=== PATIENT | female | born 1950 | race Caucasian/White ===

== ENCOUNTER 2018-05-30 14:41 | Emergency (ER) | payer OTHER ==
[2018-05-30] MEDS ORDERED: NA CHLORIDE 0.9% 1,000 ML ONE (16:21)
[2018-05-30 16:45] LABS: Absolute Monocytes 0.8 K/uL (0.1-1.3); Absolute Neutrophil 7.1 K/uL (1.8-8.0); Eosinophils % 1.5 % (0-4.4); Hematocrit 39.8 % (36.0-45.0); Lymphocytes % 27.2 % (15.3-44.8); MPV 9.4 fL (7.6-11.3); Monocytes % 6.8 % (3.3-12.3); RBC Red Blood Cell Count 4.35 M/uL (3.86-4.86)
[2018-05-30 17:00] LABS: Albumin 3.3 g/dL (3.4-5.0); Bilirubin Direct 0.2 mg/dL (0-0.2); Bilirubin Total 0.6 mg/dL (0.2-1.0); Potassium 3.2 mmol/L (3.5-5.1); Protein, Total 7.3 g/dL (6.4-8.2)
[2018-05-30 17:29] LABS: Urine Blood NEGATIVE (NEG); Urine Glucose NEGATIVE (NEG); Urine Protein 1+ (NEG); Urine Specific Gravity 1.015 (1.005-1.030); Urine pH 5.5 (5.0-7.0)
[2018-05-30] MEDS ORDERED: POTASSIUM 25 MEQ EFFERV TAB ONE (17:57)
[2018-05-30] MEDS ORDERED: ONDANSETRON 4 MG/2 ML VIAL ONE (18:22)
[2018-05-30 18:41] LABS: Urine Amorphous Sediment 1+ /HPF (NONE SEEN); Urine Bacteria >50 /HPF (<20); Urine Culture Reflex Order REFLEXED; Urine RBC <5 /HPF (NONE SEEN); Urine Yeast PRESENT (NONE SEEN)
--- NOTE | 2018-05-30 19:08 | ER ---
Nurse's Notes [facility] Name: Robina Stevens Age: 68 yrs Sex: Female : 1950 Arrival Date: 05/30/2018 Time: 14:45 Bed 13 Private MD: Torin Laguna E Diagnosis: Candidiasis of other urogenital sites;Acute stress reaction Presentation: 05/30 15:15 Presenting complaint: Patient states: Generalized weakness and shakiness that began 2 aa5 weeks ago. Pt reports burning sensation to feet. 15:15 Transition of care: patient was not received from another setting of care. Onset of aa5 symptoms was April 2018. Risk Assessment: Do you want to hurt yourself or someone else? Patient reports no desire to harm self or others. Initial Sepsis Screen: Does the patient meet any 2 criteria? No. Patient's initial sepsis screen is negative. Does the patient have a suspected source of infection? No. Patient's initial sepsis screen is negative. Care prior to arrival: None. 15:15 Method Of Arrival: Ambulatory aa5 15:15 Acuity: YOJANA 3 aa5 Historical: - Allergies: 15:15 Bactrim; aa5 - PMHx: 15:15 GERD; Hypertension; Anxiety; chronic UTI; aa5 - PSHx: 15:15 ; achilles tendon; aa5 - Immunization history:: Adult Immunizations unknown. - Ebola Screening: : No symptoms or risks identified at this time. - Social history:: Smoking status: Patient/guardian denies using tobacco. Screenin:30 Abuse screen: Denies threats or abuse. Denies injuries from another. Nutritional jl7 screening: No deficits noted. Tuberculosis screening: No symptoms or risk factors identified. Fall Risk IV access (20 points). Total Carpenter Fall Scale indicates No Risk (0-24 pts). Assessment: 16:00 General: Appears in no apparent distress. uncomfortable, Behavior is calm, cooperative, jl7 appropriate for age. Pain: Complains of pain in right leg and left leg Pain does not radiate. Pain currently is 10 out of 10 on a pain scale. Quality of pain is described as burning, tingling, Pain began 2 weeks ago Is continuous. Neuro: Level of Consciousness is awake, alert, obeys commands, Oriented to person, place, time, situation. Cardiovascular: Patient's skin is warm and dry. Respiratory: Airway is patent Respiratory effort is even, unlabored, Respiratory pattern is regular, symmetrical. GI: No signs and/or symptoms were reported involving the gastrointestinal system. : No signs and/or symptoms were reported regarding the genitourinary system. EENT: Derm: Skin is pink, warm \T\ dry. Musculoskeletal: No signs and/or symptoms reported regarding the musculoskeletal system. 17:30 Reassessment: Pt's left AC IV infiltrated, fluids stopped, IV dc'd at this time. jl7 18:12 Reassessment: Pt reports nausea after potassium PO, ERP notified, see MAR for orders. jl7 19:00 General: Appears in no apparent distress. comfortable, Behavior is calm, cooperative, rr5 appropriate for age. Pain: Denies pain. Neuro: Level of Consciousness is awake, alert, obeys commands, Oriented to person, place, time, situation, Appropriate for age. 19:00 Cardiovascular: Capillary refill < 3 seconds Patient's skin is warm and dry. rr5 Respiratory: Airway is patent Respiratory effort is even, unlabored, Respiratory pattern is regular, symmetrical. GI: Abdomen is round obese. : No signs and/or symptoms were reported regarding the genitourinary system. EENT: No signs and/or symptoms were reported regarding the EENT system. Derm: Skin is intact, Skin is pink, warm \T\ dry. Skin temperature is warm. Musculoskeletal: Capillary refill < 3 seconds, Range of motion: intact in all extremities. 19:49 Reassessment: Patient appears in no apparent distress at this time. Patient is alert, rr5 oriented x 3, equal unlabored respirations, skin warm/dry/pink. discharge instruction given and explained without complaints made. Patient states feeling better. Patient states symptoms have improved. Vital Signs: 15:17 BP 165 / 79; Pulse 71; Resp 18 S; Temp 99.2(O); Pulse Ox 97% on R/A; Weight 113.4 kg aa5 (R); Height 5 ft. 2 in. (157.48 cm) (R); Pain 10/10; 16:00 BP 150 / 69; Pulse 65; Resp 16 S; Pulse Ox 96% on R/A; jl7 18:20 BP 127 / 67; Pulse 79; Resp 16 S; Pulse Ox 95% on R/A; jl7 19:00 BP 140 / 70; Pulse 74; Resp 17; Temp 98.7; Pulse Ox 97% ; Pain 0/10; rr5 19:49 BP 132 / 77; Pulse 70; Resp 17; Pulse Ox 99% ; rr5 15:17 Body Mass Index 45.73 (113.40 kg, 157.48 cm) aa5 ED Course: 14:45 Patient arrived in ED. mr 14:45 Torin Laguna MD is Private Physician. mr 15:15 Arm band placed on Patient placed in an exam room, on a stretcher. aa5 15:28 Liborio Gallardo, GARY is PHCP. pm1 15:28 Mukesh Jones MD is Attending Physician. pm1 15:29 Triage completed. aa5 16:05 Ruby Ko, LINDA is Primary Nurse. jl7 16:30 Patient has correct armband on for positive identification. Bed in low position. Call jl7 light in reach. Side rails up X 1. Pulse ox on. NIBP on. Warm blanket given. 16:30 Initial lab(s) drawn, by oh, sent to lab. Inserted saline lock: 22 gauge in left jl7 antecubital area, using aseptic technique. Blood collected. 17:12 Urine Microscopic Only Sent. [facility] 17:13 Urine collected: clean catch specimen, cloudy. 5 18:09 Inserted saline lock: 24 gauge in left wrist, using aseptic technique. jl7 19:06 Torin Laguna MD is Referral Physician. pm1 19:49 Assist provider with bone marrow aspiration. IV discontinued, intact, bleeding rr5 controlled, No redness/swelling at site. Pressure dressing applied. Administered Medications: 16:30 Drug: NS 0.9% 1000 ml Route: IV; Rate: 1000 ml; Site: left antecubital; jl7 19:45 Follow up: IV Status: Completed infusion rr5 17:45 Drug: Potassium Effervescent Tablet 50 mEq Route: PO; jl7 19:45 Follow up: Response: No adverse reaction rr5 18:19 Drug: Zofran 4 mg Route: IVP; Site: left wrist; jl7 19:45 Follow up: Response: No adverse reaction rr5 19:27 Drug: DiFLUcan 150 mg Route: PO; rr5 19:45 Follow up: Response: No adverse reaction rr5 Outcome: 19:08 Discharge ordered by . pm1 19:49 Discharged to home ambulatory, with family. rr5 19:49 Condition: stable 19:49 Discharge instructions given to patient, Instructed on discharge instructions, follow up and referral plans. medication usage, Demonstrated understanding of instructions, follow-up care, medications, Prescriptions given X 1. 19:50 Patient left the ED. rr5 Signatures: Loraine Zimmer ElmoCecy, RN RN aa5 Liborio Gallardo NP CHIEF CRNA pm1 Evon Moreno Ruby Hurtado RN RN jl7 Isacc Pinon RN RN rr5
--- NOTE | 2018-05-30 19:08 | EDPHYS ---
Physician Documentation [facility] Name: Robina Stevens Age: 68 yrs Sex: Female : 1950 Arrival Date: 05/30/2018 Time: 14:45 Bed 13 Private MD: Torin Laguna E ED Physician Mukesh Jones HPI: 05/30 18:01 This 68 yrs old Female presents to ER via Ambulatory with complaints of pm1 General Weakness. 18:01 Presenting for generalized weakness. Onset: The symptoms/episode began/occurred 2 pm1 month(s) ago. Severity of symptoms: in the emergency department the symptoms are unchanged. The patient has been recently seen by a physician: the patient's primary care provider. Patient presents today with complaints of generalized weakness and shaking. Started two months ago and she attributes it to her discontinuation of Xanax. Patient took Xanax for 15 years and decided to take herself off of the medication. Saw her PCP recently regarding the same symptoms and was prescribed trazodone for her anxiety and insomnia. Patient also reports the sensation of both her feet having a burning sensation since stopping Xanax. History of chronic UTIs and takes Macrobid daily. Historical: - Allergies: 15:15 Bactrim; aa5 - PMHx: 15:15 GERD; Hypertension; Anxiety; chronic UTI; aa5 - PSHx: 15:15 ; achilles tendon; aa5 - Immunization history:: Adult Immunizations unknown. - Ebola Screening: : No symptoms or risks identified at this time. - Social history:: Smoking status: Patient/guardian denies using tobacco. ROS: 18:01 Constitutional: Negative for fever, chills, and weight loss, Eyes: Negative for injury, pm1 pain, redness, and discharge, ENT: Negative for injury, pain, and discharge, Neck: Negative for injury, pain, and swelling, Cardiovascular: Negative for chest pain, palpitations, and edema, Respiratory: Negative for shortness of breath, cough, wheezing, and pleuritic chest pain, Abdomen/GI: Negative for abdominal pain, nausea, vomiting, diarrhea, and constipation, Back: Negative for injury and pain, : Negative for injury, bleeding, discharge, and swelling, MS/Extremity: Negative for injury and deformity. 18:01 Skin: Positive for burning sensation to feet bilaterally, Negative for rash, swelling. 18:01 Neuro: Positive for generalized weakness, Negative for numbness, tingling. Exam: 18:01 Constitutional: This is a well developed, well nourished patient who is awake, alert, pm1 and in no acute distress. Head/Face: Normocephalic, atraumatic. Eyes: Pupils equal round and reactive to light, extra-ocular motions intact. Lids and lashes normal. Conjunctiva and sclera are non-icteric and not injected. Cornea within normal limits. Periorbital areas with no swelling, redness, or edema. ENT: Nares patent. No nasal discharge, no septal abnormalities noted. Tympanic membranes are normal and external auditory canals are clear. Oropharynx with no redness, swelling, or masses, exudates, or evidence of obstruction, uvula midline. Mucous membranes moist. Neck: Trachea midline, no thyromegaly or masses palpated, and no cervical lymphadenopathy. Supple, full range of motion without nuchal rigidity, or vertebral point tenderness. No Meningismus. Chest/axilla: Normal chest wall appearance and motion. Nontender with no deformity. No lesions are appreciated. Cardiovascular: Regular rate and rhythm with a normal S1 and S2. No gallops, murmurs, or rubs. Normal PMI, no JVD. No pulse deficits. Respiratory: Lungs have equal breath sounds bilaterally, clear to auscultation and percussion. No rales, rhonchi or wheezes noted. No increased work of breathing, no retractions or nasal flaring. Abdomen/GI: Soft, non-tender, with normal bowel sounds. No distension or tympany. No guarding or rebound. No evidence of tenderness throughout. Back: No spinal tenderness. No costovertebral tenderness. Full range of motion. Skin: Warm, dry with normal turgor. Normal color with no rashes, no lesions, and no evidence of cellulitis. MS/ Extremity: Pulses equal, no cyanosis. Neurovascular intact. Full, normal range of motion. 18:01 Neuro: Orientation: is normal, Motor: is normal, moves all fours, Sensation: is normal, no obvious gross deficits. Vital Signs: 15:17 BP 165 / 79; Pulse 71; Resp 18 S; Temp 99.2(O); Pulse Ox 97% on R/A; Weight 113.4 kg aa5 (R); Height 5 ft. 2 in. (157.48 cm) (R); Pain 10/10; 16:00 BP 150 / 69; Pulse 65; Resp 16 S; Pulse Ox 96% on R/A; jl7 18:20 BP 127 / 67; Pulse 79; Resp 16 S; Pulse Ox 95% on R/A; jl7 19:00 BP 140 / 70; Pulse 74; Resp 17; Temp 98.7; Pulse Ox 97% ; Pain 0/10; rr5 19:49 BP 132 / 77; Pulse 70; Resp 17; Pulse Ox 99% ; rr5 15:17 Body Mass Index 45.73 (113.40 kg, 157.48 cm) aa5 MDM: 15:29 Patient medically screened. pm1 18:08 Data reviewed: vital signs. Data interpreted: Pulse oximetry: on room air is 96 %. pm1 Interpretation: normal. 19:06 Counseling: I had a detailed discussion with the patient and/or guardian regarding: the pm1 historical points, exam findings, and any diagnostic results supporting the discharge/admit diagnosis, lab results, the need for outpatient follow up, to return to the emergency department if symptoms worsen or persist or if there are any questions or concerns that arise at home. 05/30 15:57 Order name: Basic Metabolic Panel; Complete Time: 17:03 pm1 05/30 15:57 Order name: CBC with Diff; Complete Time: 17:03 pm1 05/30 15:57 Order name: Hepatic Function; Complete Time: 17:03 pm1 05/30 15:57 Order name: Urine Microscopic Only; Complete Time: 18:57 pm1 05/30 17:14 Order name: Urine Dipstick--Ancillary (enter results); Complete Time: 17:32 bd 05/30 19:06 Order name: Urine Culture EDMS 02 15:57 Order name: IV Saline Lock; Complete Time: 17:36 pm1 05/30 15:57 Order name: Labs collected and sent; Complete Time: 17:36 pm1 05/30 15:57 Order name: Urine Dipstick-Ancillary (obtain specimen); Complete Time: 17:13 pm1 Administered Medications: 16:30 Drug: NS 0.9% 1000 ml Route: IV; Rate: 1000 ml; Site: left antecubital; jl7 19:45 Follow up: IV Status: Completed infusion rr5 17:45 Drug: Potassium Effervescent Tablet 50 mEq Route: PO; jl7 19:45 Follow up: Response: No adverse reaction rr5 18:19 Drug: Zofran 4 mg Route: IVP; Site: left wrist; jl7 19:45 Follow up: Response: No adverse reaction rr5 19:27 Drug: DiFLUcan 150 mg Route: PO; rr5 19:45 Follow up: Response: No adverse reaction rr5 Disposition: 05/30/18 19:08 Discharged to Home. Impression: Candidiasis of other urogenital sites, Acute stress reaction. - Condition is Stable. - Discharge Instructions: Insomnia, Stress and Stress Management, Generalized Anxiety Disorder. - Prescriptions for Hydroxyzine HCl 25 mg Oral Tablet - take 1 tablet by ORAL route every 6 hours As needed; 20 tablet. - Medication Reconciliation Form, Thank You Letter, Antibiotic Education, Prescription Opioid Use form. - Follow up: Emergency Department; When: As needed; Reason: Worsening of condition. Follow up: Torin Laguna MD; When: 2 - 3 days; Reason: Recheck today's complaints, Continuance of care, Re-evaluation by your physician. - Problem is new. - Symptoms have improved. Addendum: 06/02/2018 07:17 Co-signature as Attending Physician, Mukesh Jones MD. r n Signatures: Dispatcher [employer] EDMukesh Gambino MD MD rn Calderon, Audri RN RN aa5 Liborio Gallardo, PHARMACISTS PHARMACISTS pm1 Ruby Ko RN RN jl7 Isacc Pinon RN RN rr5 Corrections: (The following items were deleted from the chart) 05/30 19:50 19:08 05/30/2018 19:08 Discharged to Home. Impression: Candidiasis of other urogenital rr5 sites; Acute stress reaction. Condition is Stable. Forms are Medication Reconciliation Form, Thank You Letter, Antibiotic Education, Prescription Opioid Use. Follow up: Emergency Department; When: As needed; Reason: Worsening of condition. Follow up: Torin Laguna; When: 2 - 3 days; Reason: Recheck today's complaints, Continuance of care, Re-evaluation by your physician. Problem is new. Symptoms have improved. pm1
[2018-05-30] MEDS ORDERED: FLUCONAZOLE 100 MG TAB ONE (19:29)
[2018-05-30 20:57] VITALS: TEMP 98.7
[2018-05-30 20:58] VITALS: BP 132/77; O2SAT 99
== END 2018-05-30 19:50 | disposition home or self-care (01) ==
LOC: ER 14:41
DX: B37.49 Other urogenital candidiasis (principal); F43.0 Acute stress reaction; I10 Essential (primary) hypertension; Z88.1 Allergy status to other antibiotic agents
CPT/HCPCS: 36415; 80048; 80076; 85025; 87086; 87088; 96361; 96374; 99284; J2405; J7030; 81003; 81015

== ENCOUNTER 2019-06-22 10:52 | Emergency (ER) | payer OTHER ==
--- OUTSIDE RECORDS SUMMARY | 2019-06-22 10:54 | XMS REPORT ---
:1950 [facility] Address [address] [place] [address] Dr. Kelly [address] [place] [id number] Care Team Providers Name Role Phone Unavailable Unavailable Unavailable Problems This patient has no known problems. Allergies, Adverse Reactions, Alerts This patient has no known allergies or adverse reactions. Medications This patient has no known medications.
[2019-06-22 12:11] LABS: Absolute Lymphocytes (CBC) 2.7 K/uL (0.7-4.9); Basophils % 1.1 % (0-1.3); Hematocrit 35.7 % (36.0-45.0); Lymphocytes % 24.6 % (15.3-44.8); MPV 8.5 fL (7.6-11.3); RBC Red Blood Cell Count 4.12 M/uL (3.86-4.86)
--- NOTE | 2019-06-22 12:18 | RAD REPORT ---
EXAM DESCRIPTION: RAD - Chest Single View - 06/22/2019 12:10 pm CLINICAL HISTORY: Fall injury Chest pain. COMPARISON: No comparisons FINDINGS: Portable technique limits examination quality. The lungs are grossly clear. Upper limit of normal heart size. No displaced fractures. IMPRESSION: No acute intrathoracic process suspected.
[2019-06-22 12:29] LABS: Bilirubin Direct 0.2 mg/dL (0-0.2); Bilirubin Total 0.6 mg/dL (0.2-1.0); Potassium 3.1 mmol/L (3.5-5.1); Protein, Total 8.2 g/dL (6.4-8.2)
[2019-06-22 12:50] LABS: Urine Blood NEGATIVE (NEG); Urine Glucose NEGATIVE (NEG); Urine Protein 2+ (NEG)
[2019-06-22 13:05] LABS: Urine Bacteria <20 /HPF (<20); Urine Culture Reflex Order NOT NEEDED; Urine Mucus LIGHT /HPF (NONE SEEN); Urine RBC <5 /HPF (NONE SEEN)
--- NOTE | 2019-06-22 13:47 | RAD REPORT ---
EXAM DESCRIPTION: CT - Head C Spine Cap W Con - 06/22/2019 1:01 pm CLINICAL HISTORY: Trauma, head and neck injury. Chest, abdomen and pelvis pain. Fall injury COMPARISON: Chest Single View dated 06/22/2019 TECHNIQUE: CT head without contrast. CT cervical spine without contrast with coronal and sagittal reformatted images. CT chest, abdomen and pelvis with IV contrast (approximately 100 mL nonionic IV contrast) with díaz l and sagittal reformatted images of the spine. All CT scans are performed using dose optimization technique as appropriate and may include automated exposure control or mA/KV adjustment according to patient size. FINDINGS: CT HEAD WITHOUT CONTRAST: No intracranial hemorrhage, hydrocephalus or extra-axial fluid collection. Mild generalized brain atr ophy. No areas of brain edema or midline shift. The paranasal sinuses and mastoids are clear. The calvarium is intact. CT CERVICAL SPINE WITHOUT CONTRAST: No fracture or subluxation. The prevertebral soft tissues are normal in thickness. CT CHEST, ABDOMEN, PELVIS WITH CONTRAST: The lungs are emphysematous but clear.No pneumothorax or pericardial/pleural fluid. No evidence of intra-abdominal visceral injury, free fluid or free air. No rib fracture is evident. Mild superior compression deformity affects L2 vertebral body, age indeterminate. IMPRESSION: Age-indeterminate superior L2 mild central compression deformity, but potentially acute or subacute. If the patient is experiencing significant back pain, MR imaging followup may be of value.
[2019-06-22] MEDS ORDERED: NA CHLORIDE 0.9% 500 ML ONE (14:41)
[2019-06-22] MEDS ORDERED: POTASSIUM CL SA 10 MEQ TAB PO ONE (14:41)
--- NOTE | 2019-06-22 14:53 | EDPHYS ---
Physician Documentation [facility] Name: Robina Stevens Age: 69 yrs Sex: Female : 1950 Arrival Date: 06/22/2019 Time: 10:56 Bed 20 Private MD: Torin Laguna E ED Physician Arjun Olmedo HPI: 11:36 This 69 yrs old Female presents to ER via Wheelchair with complaints of Fall pm1 Injury. 11:36 Details of fall: The patient fell from an upright position, while standing, and struck pm1 a tile surface. Onset: The symptoms/episode began/occurred 1 week(s) ago. Associated injuries: The patient sustained right subscapular area. The patient has been recently seen by a physician: Dr. Estevez for UTI and is currently taking amoxicillin for the past 5-6 days for her chronic UTI. Was taking prior antibiotics for the past three months. Patient fell 1 week ago. Was gong to the restroom and accidentally urinated on the floor prior to urinating on the toilet. Slipped when she got up. Reports that she hit her head. No LOC, headache, neck pain. or vomiting. concerned because he believes that she has been altered for the past few weeks. Historical: - Allergies: 11:22 Bactrim; em - Home Meds: 11:22 Bystolic Oral [Active]; Nexium Oral [Active]; Amoxicillin Oral [Active]; em - PMHx: 11:22 Anxiety; chronic uti; GERD; Hypertension; em - PSHx: 11:22 Hysterectomy; em - Immunization history:: Adult Immunizations up to date. - Social history:: Smoking status: Patient denies any tobacco usage or history of. ROS: 11:36 Constitutional: Negative for fever, chills, and weight loss, Neck: Negative for injury, pm1 pain, and swelling, Cardiovascular: Negative for chest pain, palpitations, and edema, Respiratory: Negative for shortness of breath, cough, wheezing, and pleuritic chest pain, Abdomen/GI: Negative for abdominal pain, nausea, vomiting, diarrhea, and constipation. 11:36 : Negative for injury, bleeding, discharge, and swelling, MS/Extremity: Negative for injury and deformity, Skin: Negative for injury, rash, and discoloration. 11:36 Back: Positive for of the right subscapular area, pain. 11:36 Neuro: Positive for altered mental status, Negative for dizziness, headache, numbness, tingling, weakness. Exam: 11:36 Constitutional: This is a well developed, well nourished patient who is awake, alert, pm1 and in no acute distress. Head/Face: Normocephalic, atraumatic. Neck: Trachea midline, no thyromegaly or masses palpated, and no cervical lymphadenopathy. Supple, full range of motion without nuchal rigidity, or vertebral point tenderness. No Meningismus. Chest/axilla: Normal chest wall appearance and motion. Nontender with no deformity. No lesions are appreciated. Cardiovascular: Regular rate and rhythm with a normal S1 and S2. No gallops, murmurs, or rubs. Normal PMI, no JVD. No pulse deficits. Respiratory: Lungs have equal breath sounds bilaterally, clear to auscultation and percussion. No rales, rhonchi or wheezes noted. No increased work of breathing, no retractions or nasal flaring. Abdomen/GI: Soft, non-tender, with normal bowel sounds. No distension or tympany. No guarding or rebound. No evidence of tenderness throughout. 11:36 MS/ Extremity: Pulses equal, no cyanosis. Neurovascular intact. Full, normal range of motion. 11:36 Back: pain, is absent. 11:36 Skin: Appearance: normal except for affected area, injury, contusion(s), that are superficial, of the right subscapular area. 11:36 Neuro: Orientation: is normal, Mentation: is normal, appropriate for stated age, Motor: is normal, moves all fours. Vital Signs: 11:14 BP 150 / 82; Pulse 80; Resp 18; Temp 97.7(O); Pulse Ox 97% on R/A; Weight 111.13 kg; em Height 5 ft. 2 in. (157.48 cm); Pain 6/10; 13:45 BP 159 / 85; Pulse 71; Resp 16; Pulse Ox 99% on R/A; em 11:14 Body Mass Index 44.81 (111.13 kg, 157.48 cm) em MDM: 11:07 Patient medically screened. [facility] 14:32 Data reviewed: vital signs. Data interpreted: Pulse oximetry: on room air is 99 %. pm1 Interpretation: normal. Counseling: I had a detailed discussion with the patient and/or guardian regarding: the historical points, exam findings, and any diagnostic results supporting the discharge/admit diagnosis, lab results, radiology results, the need for outpatient follow up, to return to the emergency department if symptoms worsen or persist or if there are any questions or concerns that arise at home. 11:31 Order name: Basic Metabolic Panel; Complete Time: 12:47 pm1 11:31 Order name: Blood Culture Adult (2) pm1 11:31 Order name: CBC with Diff; Complete Time: 12:47 pm1 11:31 Order name: LFT's; Complete Time: 12:47 pm1 11:31 Order name: Urine Microscopic Only; Complete Time: 13:12 pm 12:47 Order name: Urine Dipstick--Ancillary (enter results); Complete Time: 12:59 eb 11:31 Order name: Chest Single View XRAY; Complete Time: 12:22 pm1 11:31 Order name: Labs collected and sent; Complete Time: 12:11 pm 11:31 Order name: Urine Dipstick-Ancillary (obtain specimen); Complete Time: 12:38 pm1 11:46 Order name: CT Traumagram (Head C Spine CAP W Con); Complete Time: 13:55 pm1 Administered Medications: 14:46 Drug: NS 0.9% 500 ml Route: IV; Rate: bolus; Site: right antecubital; em 15:49 Follow up: IV Status: Completed infusion; IV Intake: 500ml em 15:48 Drug: Potassium Chloride 40 mEq Route: PO; em 15:51 Follow up: Response: Medication administered at discharge. em Disposition: 06/22/19 14:52 Discharged to Home. Impression: Fall on same level from slipping, tripping and stumbling, Contusion of right back wall of thorax. - Condition is Stable. - Discharge Instructions: Rib Contusion, Fall Prevention in the Home. - Medication Reconciliation Form, Thank You Letter, Antibiotic Education, Prescription Opioid Use form. - Follow up: Emergency Department; When: As needed; Reason: Worsening of condition. Follow up: Private Physician; When: 2 - 3 days; Reason: Recheck today's complaints, Continuance of care, Re-evaluation by your physician. - Problem is new. - Symptoms have improved. Addendum: 06/23/2019 18:00 Co-signature as Attending Physician, Arjun Olmedo MD I agree with the assessment and c wu plan of care. Signatures: Dispatcher [employer] [facility] Arjun Olmedo MD MD cha Munoz, Edgar, RN RN Liborio Gallardo, CANAL SUPERINTENDENT CANAL SUPERINTENDENT pm1 Corrections: (The following items were deleted from the chart) 11:58 11:31 Head C Spine MPR Wo Con+CT.RAD.BRZ ordered. EDIA EDIA 11:58 11:31 Thorax W/ Con+CT.RAD.BRZ ordered. [facility] EDIA 15:53 14:52 06/22/2019 14:52 Discharged to Home. Impression: Fall on same level from em slipping, tripping and stumbling; Contusion of right back wall of thorax. Condition is Stable. Forms are Medication Reconciliation Form, Thank You Letter, Antibiotic Education, Prescription Opioid Use. Follow up: Emergency Department; When: As needed; Reason: Worsening of condition. Follow up: Private Physician; When: 2 - 3 days; Reason: Recheck today's complaints, Continuance of care, Re-evaluation by your physician. Problem is new. Symptoms have improved. pm1
--- NOTE | 2019-06-22 14:53 | ER ---
Nurse's Notes [facility] Name: Robina Stevens Age: 69 yrs Sex: Female : 1950 Arrival Date: 06/22/2019 Time: 10:56 Bed 20 Private MD: Torin Laguna E Diagnosis: Fall on same level from slipping, tripping and stumbling;Contusion of right back wall of thorax Presentation: 11:14 Chief complaint: Patient states: slipped on urine last Monday (1 week ago) and fell em and hit head, denies taking blood thinners, also reports urinary symptoms that started about the time per , also reports mild confusion, denies knee or hip pain, only back pain. Coronavirus screen: The patient has NOT traveled to [place] in the past 14 days. The patient has NOT had contact with known and/or suspected case of Coronavirus. Ebola Screen: Patient negative for fever greater than or equal to 101.5 degrees Fahrenheit, and additional compatible Ebola Virus Disease symptoms Patient denies exposure to infectious person. Patient denies travel to an Ebola-affected area in the 21 days before illness onset. No symptoms or risks identified at this time. Initial Sepsis Screen: Does the patient meet any 2 criteria? No. Patient's initial sepsis screen is negative. Does the patient have a suspected source of infection? Yes: Dysuria/Frequency/Urgency/UTI. Risk Assessment: Do you want to hurt yourself or someone else? Patient reports no desire to harm self or others. 11:14 Method Of Arrival: Wheelchair em 11:14 Acuity: YOJANA 3 em Historical: - Allergies: 11:22 Bactrim; em - Home Meds: 11:22 Bystolic Oral [Active]; Nexium Oral [Active]; Amoxicillin Oral [Active]; em - PMHx: 11:22 Anxiety; chronic uti; GERD; Hypertension; em - PSHx: 11:22 Hysterectomy; em - Immunization history:: Adult Immunizations up to date. - Social history:: Smoking status: Patient denies any tobacco usage or history of. Screenin:23 Abuse screen: Denies threats or abuse. Nutritional screening: No deficits noted. em Tuberculosis screening: No symptoms or risk factors identified. Fall Risk Fall in past 12 months (25 points). Assessment: 11:14 General: Appears in no apparent distress. comfortable, Behavior is calm, cooperative. em Pain: Complains of pain in back Pain currently is 6 out of 10 on a pain scale. Pain began 1 week ago. Neuro: Level of Consciousness is awake, alert, obeys commands, Oriented to person, place, time, situation, Appropriate for age Moves all extremities. Speech is normal, Intact. Cardiovascular: Capillary refill < 3 seconds Patient's skin is warm and dry. Respiratory: Airway is patent Respiratory effort is even, unlabored, Respiratory pattern is regular, symmetrical. GI: Patient currently denies nausea, vomiting. : Reports burning with urination, urgency, urinary frequency. Derm: Skin is intact, is thin, Skin is pink, warm \T\ dry. Musculoskeletal: Capillary refill < 3 seconds, Range of motion: intact in all extremities. 12:00 Reassessment: Patient appears in no apparent distress at this time. Patient and/or em family updated on plan of care and expected duration. Pain level reassessed. Patient is alert, oriented x 3, equal unlabored respirations, skin warm/dry/pink. 13:18 Reassessment: Patient appears in no apparent distress at this time. returned from CT. em 13:44 Reassessment: Patient appears in no apparent distress at this time. assisted to em restroom via wheelchair. 15:01 Reassessment: Patient appears in no apparent distress at this time. Patient and/or em family updated on plan of care and expected duration. Pain level reassessed. Patient is alert/active/playful, equal unlabored respirations, skin warm/dry/pink. pending completion of IV NS Patient denies pain at this time. Vital Signs: 11:14 BP 150 / 82; Pulse 80; Resp 18; Temp 97.7(O); Pulse Ox 97% on R/A; Weight 111.13 kg; em Height 5 ft. 2 in. (157.48 cm); Pain 6/10; 13:45 BP 159 / 85; Pulse 71; Resp 16; Pulse Ox 99% on R/A; em 11:14 Body Mass Index 44.81 (111.13 kg, 157.48 cm) em ED Course: 10:56 Patient arrived in ED. mr 10:56 Torin Laguna MD is Private Physician. mr 11:03 Red Campbell, LINDA is Primary Nurse. em 11:05 Liborio Gallardo NP is PHCP. pm1 11:06 Arjun Olmedo MD is Attending Physician. pm1 11:14 Patient maintains SpO2 saturation greater than 95% on room air. em 11:18 Triage completed. em 11:22 Arm band placed on. em 11:23 Patient has correct armband on for positive identification. Placed in gown. Bed in low em position. Call light in reach. Side rails up X2. Adult w/ patient. quality assurance monitor final on. Pulse ox on. NIBP on. 11:45 First set of blood cultures drawn by me. jb1 12:00 Radiology exam delayed due to lab results not completed at this time. (BUN/Creatinine). bq 12:00 Second set of blood cultures drawn by me. jb1 12:10 Initial lab(s) drawn, by me, sent to lab. Inserted saline lock: 22 gauge in right jb1 antecubital area, using aseptic technique. Blood collected. 12:11 Chest Single View XRAY In Process Unspecified. EDMS 12:37 Urine collected: straight cath specimen, cloudy, yumiko colored. iw 13:02 CT Traumagram (Head C Spine CAP W Con) In Process Unspecified. EDMS 15:48 No provider procedures requiring assistance completed. IV discontinued, intact, em bleeding controlled, No redness/swelling at site. Pressure dressing applied. Administered Medications: 14:46 Drug: NS 0.9% 500 ml Route: IV; Rate: bolus; Site: right antecubital; em 15:49 Follow up: IV Status: Completed infusion; IV Intake: 500ml em 15:48 Drug: Potassium Chloride 40 mEq Route: PO; em 15:51 Follow up: Response: Medication administered at discharge. em Intake: 15:49 IV: 500ml; Total: 500ml. em Outcome: 14:52 Discharge ordered by MD. pm1 15:48 Discharged to home via wheelchair, with family. em 15:48 Condition: good 15:48 Discharge instructions given to patient, family, Instructed on discharge instructions, follow up and referral plans. Demonstrated understanding of instructions, follow-up care. 15:53 Patient left the ED. em Signatures: Dispatcher [employer] EDMS Raymond Ortiz jb1 ZimmerLoraine mr GaLeslie anderson bq Red Campbell, RN RN em Olivia Ricahrd RN RN iw Liborio Gallardo, NETWORK DESIGN ARCHITECT NETWORK DESIGN ARCHITECT pm1
[2019-06-22 15:59] VITALS: TEMP 97.7
[2019-06-22 16:01] VITALS: BP 159/85; O2SAT 99
== END 2019-06-22 15:53 | disposition home or self-care (01) ==
LOC: ER 10:52
DX: S20.221A Contusion of right back wall of thorax, initial encounter (principal); W01.0XXA Fall on same level from slipping, tripping and stumbling without subsequent striking against object, initial encounter; Y93.89 Activity, other specified; Y92.9 Unspecified place or not applicable; I10 Essential (primary) hypertension; F41.9 Anxiety disorder, unspecified; Z88.1 Allergy status to other antibiotic agents
CPT/HCPCS: 87040 ×2; 85025; 80048; 36415; 80076; 70450; 72125; 71260; 74177; 71045; 96360; 99285; Q9967; J7040; 81003; 81015

== ENCOUNTER 2022-01-12 08:46 | Day surgery (SDC) | payer OTHER ==
[2022-01-12] MEDS ORDERED: NA CHLORIDE 0.9% 0 ML ONE (10:09)
[2022-01-12] MEDS ORDERED: MIDAZOLAM HCL 2 MG/2 ML INJ ONE (10:16)
[2022-01-12] MEDS ORDERED: FENTANYL CITR 100 MCG/2 ML ONE (10:16)
[2022-01-12] MEDS ORDERED: ATROPINE SULF 1 MG/10 ML SYR IV ONE (10:17)
[2022-01-12] MEDS ORDERED: MIDAZOLAM HCL 0 ML ONE (10:17)
[2022-01-12] MEDS ORDERED: FLUMAZENIL 0.1 MG/ML (5 mL VIAL) IV ONE (10:17)
[2022-01-12] MEDS ORDERED: METOPROLOL TARTRATE 5 MG/5 ML INJ IV ONE (10:17)
[2022-01-12] MEDS ORDERED: NA CHLORIDE 0.9% 500 ML ONE (10:17)
[2022-01-12 11:48] VITALS: BMI 49.4
--- NOTE | 2022-01-12 13:04 | RAD REPORT ---
EXAM DESCRIPTION: US - Liver Biopsy Procedure - 01/12/2022 11:02 am CLINICAL HISTORY: Liver disease/elevated liver function test enzymes TECHNIQUE: Risks, benefits and alternatives to the procedure were explained to the patient and infor med consent obtained. Skin, subcutaneous tissues and hepatic capsule were anesthetize with Lidocaine. Under sonographic vern dance a 17 gauge needle was placed into the left lobe of the liver. Through this an 18 gauge needle p laced. Three 2 centimeter core specimens were obtained and put in formalin and given to pathology. Post biopsy images do not demonstrate a hematoma. Patient experienced immediate complication. Patient was given 1.5 milligrams Versed said and 75 micrograms fentanyl intravenously. Vital signs mo nitored. Conscious sedation performed by the nurse in attendance. IMPRESSION: Core biopsies of the liver
[2022-01-12] MEDS ORDERED: ACETAMINOPHEN 500 MG TAB ONE (13:24)
[2022-01-12 13:46] VITALS: O2SAT 92
[2022-01-12 14:23] VITALS: BP 132/51; TEMP 97.6
== END 2022-01-12 14:20 | disposition home or self-care (01) ==
LOC: DS 08:46
PROVIDERS: ATTEND Internal Medicine Gastroenterology
DX: K74.69 Other cirrhosis of liver (principal); R11.2 Nausea with vomiting, unspecified; R79.89 Other specified abnormal findings of blood chemistry; K75.81 Nonalcoholic steatohepatitis (NASH)
CPT/HCPCS: 88313; 88307; 47000; J2250; J3010; J7040

== ENCOUNTER 2022-03-09 14:00 | Inpatient (IN) | payer OTHER ==
--- OUTSIDE RECORDS SUMMARY | 2022-03-09 14:04 | XMS REPORT | Continuity of Care Document ---
:1950 Author Organization [facility] t Address [address] [place] [address] Care Team Providers Name Role Phone Pcp, Patient Does Not Have A Primary Care Physician [phone] Zheng Conner MD Attending Clinician DARLIN BROCK Attending Clinician Unavailable Darlin Monroe Attending Clinician Doctor Unassigned, [place] Attending Clinician Unavailable ZHENG CONNER Attending Clinician Unavailable EMILIA PORTILLO Attending Clinician Unavailable ONDINA GURROLA Attending Clinician Unavailable Provider, [facility] Attending Clinician Unavailable Ondina Dominguez Attending Clinician EDUARDO CUNHA Attending Clinician Unavailable EDUARDO CUNHA Attending Clinician Unavailable Yessica Estevez MD Attending Clinician LENO_Yaneth Attending Clinician Unavailable Vandana Admitting Clinician Unavailable Payers Payer Name Policy Type Policy Number Effective Date Expiration Date Renaldo hopkins COMMERCIAL [id number] 2017 NON-CONTRACT 00:00:00 [place]IC[place]: [id number] 2013 [employer] 00:00:00 [facility] [id number] 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) Problems Condition Condition Condition Status Onset Resolution Last Treating Co mments Source Name Details Category Date Date Treatment Clinician Date No known No known Disease Unive rs active active ity of problems problems [facility] Allergies, Adverse Reactions, Alerts Allergy Allergy Status Severity Reaction(s) Onset Inactive Treating Comm ents Source Name Type Date Date Clinician Sulfa Propensi Active Rash Univers (Sulfona ty to 2-15 ity of mide adverse 00:00: [place] Antibiot reaction 00 Medica l ics) s Branch SULFA Drug Active Rash Univers (SULFONA Class 2-15 ity of MIDE 00:00: [place] ANTIBIOT 00 Medical ICS) Branch Social History Social Habit Start Date Stop Date Quantity Comments Source Exposure to Not sure [facility] SARS-CoV-2 [facility] (event) Branch Alcohol intake 2021-04-30 2021-04-30 Current University 00:00:00 00:00:00 non-drinker of [facility] alcohol [place] (finding) Tobacco use and 2017-06-08 2017-06-08 Never used Universit y of exposure 00:00:00 00:00:00 [facility] Sex Assigned At [birth year] Universit y of 00:00:00 00:00:00 [facility] Smoking Status Start Date Stop Date Source Never smoker [facility] Medications Ordered Filled Start Stop Current Ordering Indication Dosage Frequency Signature Comments Components Source Medication Medication Date Date Medication? Clinician (SIG) Name Name sodium 2020- No [id number] 30mg Uni vers hyaluronate 04-30 9109 ity of (viscosup) 22:15: 20:07 [place] (ORTHOVISC) 00 :00 Medical injection Branch 30 mg sodium 2020- No [id number] 30mg 30 mg, U nivers hyaluronate 04-30 9109 Intra-mikey i ty of (viscosup) 22:15: 20:07 [place] (ORTHOVISC) 00 :00 ONCE, 1 Medic al injection dose, On Branch 30 mg 04/30/21 at 1615, Routine sodium 2020-04- No [id number] 30mg Uni vers hyaluronate 001-05 9109 ity of (viscosup) 17:00: 15:54 [place] (ORTHOVISC) 00 :00 Medical injection Branch 30 mg sodium 2020-04- No [id number] 30mg 30 mg, U nivers hyaluronate 01-05 9109 Intra-mikey i ty of (viscosup) 17:00: 15:54 culJuana fritz s (ORTHOVISC) 00 :00 ONCE, 1 Medic al injection dose, On Branch 30 mg 01/25/21 at 1200, Routine sodium 2020- No [id number] 30mg Uni vers hyaluronate 01-05 9109 ity of (viscosup) 19:45: 20:18 [place] (ORTHOVISC) 00 :00 Medical injection Branch 30 mg sodium 2020- No [id number] 30mg 30 mg, U nivers hyaluronate 01-05 9109 Intra-mikey i ty of (viscosup) 19:45: 20:18 [place] (ORTHOVISC) 00 :00 ONCE, 1 Medic al injection dose, On Branch 30 mg 01/05/21 at 1445, Routine LORazepam 2 2020-0 Yes TAKE 1 Univ ers mg tablet 7-21 TABLET BY ity o f 00:00: MOUTH TWICE Medical DAILY Branch NEEDED LORazepam 2 2020-0 Yes TAKE 1 Univ ers mg tablet 7-21 TABLET BY ity o f 00:00: MOUTH TWICE Medical DAILY Branch NEEDED omeprazole 2020-0 Yes 40mg Take 40 mg U nivers 40 mg 6-23 by mouth ity of capsule 00:00: daily. Medical Branch rOPINIRole 2020-0 Yes 1mg Take 1 mg Un kirk 1 mg tablet 6-23 by mouth ity of 00:00: at [place] [address] bedtime. Medical Branch omeprazole 2020-0 Yes 40mg Take 40 mg U nivers 40 mg 6-23 by mouth ity of capsule 00:00: daily. [place] Medical Branch rOPINIRole 2020-0 Yes 1mg Take 1 mg Un kirk 1 mg tablet 6-23 by mouth ity of 00:00: at [place] [address] bedtime. Medical Branch Nitrofurant 2020-0 Yes [id number] 100mg Take 1 Univers oin&Nit. 2-03 capsule by ity o f Macroc[place] 00:00: mouth [place] 100 mg 00 (two) Medical capsule times Branch daily. Nitrofurant Yes [id number] 100mg Take 1 Univers oin&Nit. 2-03 capsule by ity o f [place] 00:[place]: [place] 100 mg 00 (two) Medical capsule times Branch daily. methylPREDN Yes 84mg Take 21 Uni vers ISolone 9-20 tablets by ity of (MEDROL, 00:00: mouth [place] SWATHI,) 4 mg 00 SEE-INSTRU Med ical tablets CTIONS. Branch follow package directions methylPREDN Yes 84mg Take 21 Uni vers ISolone 9-20 tablets by ity of (MEDROL, 00:00: mouth [place] SWATHI,) 4 mg 00 SEE-INSTRU Med ical tablets CTIONS. Branch follow package directions ciprofloxac Yes Univer s in HCl 500 7-13 ity of mg tablet 00:00: [facility] ciprofloxac Yes Univer s in HCl 500 7-13 ity of mg tablet 00:00: [facility] nitrofurant Yes TK 1 C PO U nivers oin 100 mg 7-09 Q NIGHT ity of capsule 00:00: [facility] nitrofurant Yes TK 1 C PO U nivers oin 100 mg 7-09 Q NIGHT ity of capsule 00:00: [facility] chlorthalid Yes TK 1 T PO U nivers one 25 mg 1-26 D ity of tablet 00:00: [facility] topiramate Yes TK 1 T PO Un kirk 25 mg 1-26 BID ity of tablet 00:00: [facility] esomeprazol Yes TK 1 C PO U nivers e 40 mg 1-26 D ity of capsule 00:00: [facility] ALPRAZolam Yes TK 1 T PO Un kirk 2 mg tablet -26 TID PRA ity o f 00:00: [facility] BYSTOLIC 20 Yes TK 1 T PO U nivers mg tablet -26 D ity of 00:00: [facility] traMADOL 50 Yes TK 1 T PO U nivers mg tablet 1-26 BID PRF ity of 00:00: PAIN [facility] chlorthalid 2017- Yes TK 1 T PO U nivers one 25 mg 1-26 D ity of tablet 00:00: Medical Branch topiramate Yes TK 1 T PO Un kirk 25 mg - BID ity of tablet 00:00: [facility] Branch esomeprazol Yes TK 1 C PO U nivers e 40 mg - D ity of capsule 00:00: [facility] ALPRAZolam Yes TK 1 T PO Un kirk 2 mg tablet - TID PRA ity o f 00:00: [place] [facility] BYSTOLIC 20 Yes TK 1 T PO U nivers mg tablet - D ity of 00:00: [place] [facility] traMADOL 50 Yes TK 1 T PO U nivers mg tablet - BID PRF ity of 00:00: PAIN [facility] Vital Signs Vital Name Observation Time Observation Value Comments Source Body height 2021-01-05 18:34:00 157.5 cm Universi ty [facility] Body weight 2021-01-05 18:34:00 122.471 kg Universi ty [facility] BMI 2021-01-05 18:34:00 49.38 kg/m2 Universi ty [facility] Body height 2021-01-05 18:34:00 157.5 cm Universi ty [facility] Body weight 2021-01-05 18:34:00 122.471 kg Universi ty [facility] BMI 2021-01-05 18:34:00 49.38 kg/m2 Universi ty [facility] Body height 2021-01-05 18:34:00 157.5 cm Universi ty [facility] Body weight 2021-01-05 18:34:00 122.471 kg Universi ty [facility] BMI 2021-01-05 18:34:00 49.38 kg/m2 [facility] Procedures This patient has no known procedures. Encounters Start End Encounter Admission Attending Care Care Encounter Source Date/Time Date/Time Type Type Clinicians Facility Department ID 2021-07-16 2021-07-16 Telephone ANDREW Conner [id number] [facility] 00:00:00 00:00:00 [facility] [id number] it y of [place] [id number] [place] as NIELS?BLEA [id number] Me mitul RICHTER [address] [facility] OFFICE [facility] 2021-01-25 2021-01-25 Outpatient Barb BROCK [facility] [id number] Univers 14:00:00 14:00:00 DARLIN ity [facility] 2021-01-18 2021-01-18 Outpatient Barb BROCK [facility] [id number] Univers 13:30:00 13:30:00 [facility] [place] [facility] 2021-01-11 [facility] [id number] Univers 14:45[facility]00 [facility]45[facility] 2021-[facility]-05 [facility] [id number] Univers 13:32:01 14:05:03 Visit [facility] [id number] it y of [place] [id number] [place] as Niels?Blea [phone] Az mitul richter 198 [facility] Office [facility] 2021-01-05 2021-01-05 [facility] [id number] Univers 13:32:01 14:05:03 Visit [facility] [id number] it y of [place] [id number] [place] as Niels?Blea [phone] Az mitul richter 198 [facility] Office [facility] 2021-01-05 2021-01-05 Office [facility] [id number] Univers 13:30:00 14:05:03 Visit [facility]ALTH [id number] it y of [place] [id number] [place] as NIELS?BLEA [id number] Az mitul RICHTER [address] [facility] OFFICE [facility] 2021-01-05 2021-01-05 Outpatient [facility] [id number] Univers 13:30:00 14:05:03 DARLIN ity [facility] 2021-01-05 2021-01-05 Outpatient Barb [facility] [id number] Univers 13:30:00 13:30:00 DARLIN steven [facility] 2020-12-29 2020-12-29 Outpatient Barb [facility] [id number] Univers 13:45:00 14:30:53 [facility] 2020-12-29 2020-12-29 Office [facility] [id number] Univers 13:41:23 14:30:53 Visit [facility] [id number] it y of [place] [id number] [place] as Niels?Blea [phone] Az mitul richter [address] [place] [address] Office [facility] 2020-12-29 2020-12-29 Outpatient Barb [facility] [id number] Univers 13:45:00 13:45:00 [facility] 2020-12-22 2020-12-22 Office [facility] [id number] Univers 13:44:17 14:24:24 Visit [facility] [id number] it y of [place] [id number] [place] as Niels?Blea [phone] Az mitul richter [address] [place] [address] Office [facility] 2020-12-22 2020-12-22 Office [facility] [id number] Univers 13:44:17 14:24:24 Visit [facility] [id number] it y of [place] [id number] [place] as Niels?Blea [phone] Az mitul richter [address] [place] [address] Office [facility] 2020-12-22 2020-12-22 Outpatient Barb [facility] [id number] Univers 13:15:00 13:15:00 [facility] 2020-12-22 2020-12-22 Orders Doctor OTERO [id number] Univers 00:00:00 00:00:00 Only Unassigned, CHELSI [id number] ity of [place] [facility] [id number] Braxton as [phone] [facility] 009 [place] 2020-11-27 2020-11-27 Office Ana [facility] [id number] Univers 09:30:45 10:11:23 Visit Zheng [facility] [id number] it y of SURGICAL [id number] Braxton as SPECIALTI [phone] Az dical ES 198 [facility] 2020-11-27 2020-11-27 Outpatient Barb CONNER [facility] [id number] Univers 09:15:00 10:11:23 [facility] 2020-11-27 2020-11-27 Outpatient Barb CONNER [facility] [id number] Univers 09:15:00 09:15:00 [facility] 2020-11-23 2020-11-23 [facility]patient [facility] [id number] Univers 15:45:00 15:45:00 [facility] 2020-09-04 2020-09-04 Outpatient BANDAR, MHBL MHBL [id number] MHBL 09:24:00 12:27:00 [facility] 2020-05-23 2020-05-23 Outpatient Barb GURROLA [facility] [id number] Univers 13:20:00 13:20:00 [facility] 2020-05-23 2020-05-23 Urgent Provider, [facility] [id number] Univers 12:35:26 12:55:26 Care Christiano [facility] [id number] ity [facility] [id number] [place]xton as Professio [phone] Az dical nal 044 [place] [facility] 2020-05-23 2020-05-23 Letter Doctor OTERO [id number] Univers 00:00:00 00:00:00 (Out) Unassigned, CHELSI [id number] ity of [place] [facility] [id number] Braxton as [id number] [facility] 044 [place] 2019-09-17 2019-09-17 Outpatient RENATA MAHERAS [facility] [id number] Univers 16:00:00 16:00:00 EDUARDO CUNHA ity of [facility] 2019-09-17 2019-09-17 Letter BRANDEN Estevez [id number] Univers 00:00:00 00:00:00 (Out) Yessica GAGNON [id number] it y of HOSPITAL [id number] [place] as [phone] [facility] 019 [place] 2019-07-23 2019-07-23 Outpatient R [facility] [id number] Univers 13:30:00 13:30:00 ity of [facility] 2019-06-14 2019-06-14 Orders Doctor OTERO [id number] Univers 00:00:00 00:00:00 Only Unassigned, CHELSI [id number] ity of [place] [facility] [id number] [place] as [id number] [place] [address] Branch 2017-05-17 2017-05-17 Outpatient _SWHAWPR PRIV PRIV [id number] [facility] 03:49:00 03:49:00 _Karlie [id number] Medica l Results This patient has no known results.
[2022-03-09] MEDS ORDERED: NA CHLORIDE 0.9% 500 ML ONE (17:14)
[2022-03-09] MEDS ORDERED: FOLIC ACID 5 MG/ML VIAL ONE (17:15)
[2022-03-09 17:50] LABS: Urine Blood Negative (Negative); Urine Glucose Negative (Negative); Urine Protein Negative (Negative); Urine Specific Gravity 1.015 (1.005-1.030)
--- NOTE | 2022-03-09 18:14 | RAD REPORT ---
EXAM DESCRIPTION: CT - Head Brain Wo Cont - 03/09/2022 6:06 pm CLINICAL HISTORY: Mental status change, persistent or worsening Headache, drowsiness COMPARISON: No comparisons TECHNIQUE: All CT scans are performed using dose optimization technique as appropriate and may inclu de automated exposure control or mA/KV adjustment according to patient size. FINDINGS: No intracranial hemorrhage, hydrocephalus or extra-axial fluid collection.Moderate diffuse brain atrophy.No areas of brain edema or evidence of midline shift. The paranasal sinuses and mastoids are clear. The calvarium is intact. IMPRESSION: No acute intracranial abnormality.
--- NOTE | 2022-03-09 18:15 | ER ---
Nurse's Notes [facility] Name: Robina Stevens Age: 72 yrs Sex: Female : 1950 Arrival Date: 03/09/2022 Time: 14:01 Bed 30 Private MD: Torin Laguna E Diagnosis: UTI/ Urinary tract infection, site not specified;Altered mental status, unspecified;Obesity, unspecified;Dementia in other diseases classified elsewhere without behavioral disturbance;Elevated white blood cell count;Unspecified combined systolic (congestive) and diastolic (congestive) heart failure;Unspecified kidney failure-INSUFFICENCY Presentation: 03/09 14:05 Chief complaint: Patient states: AMS for 5 years worsening daily. Has dementia, sent in ll1 by PCP. + N/V/D per son. Doesn't even recognize anymore. Coronavirus screen: Vaccine status: Patient reports receiving the 2nd dose of the covid vaccine. Client denies travel out of the [place] in the last 14 days. At this time, the client does not indicate any symptoms associated with coronavirus-19. Ebola Screen: Patient denies travel to an Ebola-affected area in the 21 days before illness onset. Initial Sepsis Screen: Does the patient meet any 2 criteria? No. Patient's initial sepsis screen is negative. Does the patient have a suspected source of infection? No. Patient's initial sepsis screen is negative. Risk Assessment: Do you want to hurt yourself or someone else? Patient reports no desire to harm self or others. Onset of symptoms was 2017. 14:05 Method Of Arrival: Wheelchair ll1 14:05 Acuity: YOJANA 2 ll1 Triage Assessment: 14:09 General: Appears uncomfortable, Behavior is cooperative, appropriate for age. Pain: ll1 Denies pain. Neuro: Reports AMS, confusion. Historical: - Allergies: 14:08 Bactrim; ll1 - Home Meds: 17:43 Amoxicillin Oral [Active]; Bystolic Oral [Active]; Hydrochlorothiazide Oral [Active]; em6 Nexium Oral [Active]; Xanax Oral nightly [Active]; - PMHx: 14:08 Anxiety; chronic uti; GERD; Hypertension; Dementia; ll1 - PSHx: 14:08 None; ll1 - Immunization history:: Client reports having NOT received the Covid vaccine. - Social history:: Smoking status: Patient denies any tobacco usage or history of. Screenin:31 Abuse screen: Denies threats or abuse. Nutritional screening: No deficits noted. em6 Tuberculosis screening: No symptoms or risk factors identified. 16:31 Fall Risk IV access (20 points). Ambulatory Aid- None/Bed Rest/Nurse Assist (0 pts). em6 Gait- Weak (10 pts.). Mental Status- Oriented to own ability (0 pts). Total Carpenter Fall Scale indicates Low Risk Score (25-44 pts). Fall prevention measures have been instituted. Side Rails Up X 2 Placed close to Nursing Station Frequent Obs/Assesments occuring Family Present and informed to notify staff if they need to leave bedside As available Patient and Family Educated on Fall Prevention Program and strategies. Assessment: 16:31 General: Appears in no apparent distress. Behavior is cooperative. Pain: Denies pain. em6 Neuro: Level of Consciousness is awake, alert, obeys commands, Oriented to person, place, time, situation, patients son says that she's been forgetting who's her and family. Her neurologist mentioned that if she became like that to bring her to ER. shes alert and oriented x3 for me. . Cardiovascular: Heart tones present Patient's skin is warm and dry. Respiratory: Airway is patent Respiratory effort is even, unlabored, Respiratory pattern is regular, symmetrical. GI: Abdomen is non-distended, Abd is soft and non tender X 4 quads. : No signs and/or symptoms were reported regarding the genitourinary system. EENT: No signs and/or symptoms were reported regarding the EENT system. Derm: Skin is intact, Skin is dry, Skin is red, redness noted in the lower feet. Musculoskeletal: Circulation, motion, and sensation intact. 17:30 Reassessment: Patient appears in no apparent distress at this time. No changes from em6 previously documented assessment. Patient and/or family updated on plan of care and expected duration. Pain level reassessed. Patient is alert, oriented x 3, equal unlabored respirations, skin warm/dry/pink. 18:30 Reassessment: Patient appears in no apparent distress at this time. No changes from em6 previously documented assessment. Patient and/or family updated on plan of care and expected duration. Pain level reassessed. Patient is alert, oriented x 3, equal unlabored respirations, skin warm/dry/pink. 19:30 Reassessment: Patient appears in no apparent distress at this time. No changes from em6 previously documented assessment. Patient and/or family updated on plan of care and expected duration. Pain level reassessed. Patient is alert, oriented x 3, equal unlabored respirations, skin warm/dry/pink. Vital Signs: 14:05 BP 118 / 56; Pulse 70; Resp 18; Temp 97.1; Pulse Ox 95% ; Weight 122.47 kg; Pain 0/10; ll1 16:30 BP 138 / 78; Pulse 69; Resp 18; Pulse Ox 94% on R/A; em6 18:30 BP 162 / 80; Pulse 71; Resp 18; Pulse Ox 95% on R/A; em6 ED Course: 14:01 Patient arrived in ED. am2 14:01 Torin Laguna MD is Private Physician. am2 14:08 Triage completed. ll1 14:09 Arm band placed on. ll1 15:30 Bed in low position. Call light in reach. Side rails up X2. engine monitor on. Pulse em6 ox on. NIBP on. Warm blanket given. 16:09 Preeti Moreno, LINDA is Primary Nurse. em6 16:12 Arjun Olmedo MD is Attending Physician. mingo 18:00 Accessed peripheral vein via ultrasound, utilizing dynamic ultrasound technique using jd3 ,sterile technique, per hospital protocol. Clean \T\ dry. Dressing intact. Good blood return. Flushes easily. 22 G to the right AC. 18:02 Urine Microscopic Only Sent. em6 18:02 Basic Metabolic Panel Sent. em6 18:02 CBC with Diff Sent. em6 18:02 LFT's Sent. em6 18:02 Magnesium Sent. em6 18:02 NT PRO-BNP Sent. em6 18:02 PT-INR Sent. em6 18:02 Troponin HS Sent. em6 18:05 Deng cath inserted, using sterile technique, 16 Fr., by oh, balloon inflated, to em6 gravity drainage, urine specimen collected. 18:08 CT Head Brain wo Cont In Process Unspecified. EDMS 18:11 XRAY Chest (1 view) In Process Unspecified. EDMS 18:13 Michele Virgen MD is Hospitalizing Provider. mingo 18:32 Urine Culture Sent. em6 18:32 SARS-COV-2 Antigen Rapid Sent. em6 19:23 Stone Protocol In Process Unspecified. EDMS Administered Medications: 18:01 Drug: NS 0.9% 500 ml Route: IV; Rate: bolus; Site: right antecubital; em6 19:40 Follow up: Response: No adverse reaction; IV Status: Completed infusion; IV Intake: em6 500ml 18:01 Drug: foLIC Acid 1 mg Route: IVPB; Site: right antecubital; em6 18:30 Follow up: Response: No adverse reaction em6 18:32 Drug: Cefepime 1 grams Route: IVPB; Rate: 200 ml/hr; Infused Over: 30 mins; Site: right em6 antecubital; 19:09 Follow up: Response: No adverse reaction; IV Status: Completed infusion; IV Intake: em6 100ml 20:34 Drug: Valium (diazepam) 5 mg Route: PO; em6 21:00 Follow up: Response: No adverse reaction em6 Intake: 19:09 IV: 100ml; Total: 100ml. em6 19:40 IV: 500ml; Total: 600ml. em6 Outcome: 18:14 Decision to Hospitalize by Provider. [facility] 03/10 16:06 Patient left the ED. ss Signatures: Dispatcher [employer] EDMS Arjun Olmedo MD MD cha Smirch, Shelby, RN RN ss Chioma Espinosa Jonathon, RN RN Edin Schwartz RN RN ll1 Preeti Moreno RN RN em6 Corrections: (The following items were deleted from the chart) 03/09 14:09 14:05 Pulse 70bpm; Resp 18bpm; Pulse Ox 95%; Temp 97.1F; 122.47 kg; Pain 0/10; ll1 ll1 14: 14:05 Chief complaint: Patient states: AMS for 5 years worsening daily. Has dementia, ll1 sent in by PCP. + N/V/D per son. ll1
--- NOTE | 2022-03-09 18:15 | RAD REPORT ---
EXAM DESCRIPTION: RAD - Chest Single View - 03/09/2022 6:09 pm CLINICAL HISTORY: COUGH Chest pain. COMPARISON: Chest Pa And Lat (2 Views) dated 06/18/2020; Chest Single View dated 06/22/2019 FINDINGS: Portable technique limits examination quality. Mild pulmonary edema is seen. The heart is mildly enlarged. No displaced fractures. IMPRESSION: Mild CHF.
--- NOTE | 2022-03-09 18:15 | EDPHYS ---
Physician Documentation [facility] Name: Robina Stevens Age: 72 yrs Sex: Female : 1950 Arrival Date: 03/09/2022 Time: 14:01 Bed 30 Private MD: Torin Laguna E ED Physician Arjun Olmedo HPI: 03/09 18:07 This 72 yrs old Female presents to ER via Wheelchair with complaints of mingo Altered Mental Status. 18:07 The patient presents with confusion, trouble concentrating. Onset: The symptoms/episode mingo began/occurred 2 day(s) ago. Possible causes: sepsis, the patient has a known UTI history. Associated signs and symptoms: Pertinent positives: combativeness, confusion, lightheadedness. Current symptoms: In the emergency department the patient's symptoms have improved, moderately. Patient's baseline: Neuro: alert and fully oriented. The patient has experienced similar episodes in the past, multiple times. Historical: - Allergies: 14:08 Bactrim; ll1 - Home Meds: 17:43 Amoxicillin Oral [Active]; Bystolic Oral [Active]; Hydrochlorothiazide Oral [Active]; em6 Nexium Oral [Active]; Xanax Oral nightly [Active]; - PMHx: 14:08 Anxiety; chronic uti; GERD; Hypertension; Dementia; ll1 - PSHx: 14:08 None; ll1 - Immunization history:: Client reports having NOT received the Covid vaccine. - Social history:: Smoking status: Patient denies any tobacco usage or history of. ROS: 18:10 Constitutional: Negative for fever, chills, and weight loss, Eyes: Negative for injury, mingo pain, redness, and discharge, ENT: Negative for injury, pain, and discharge, Neck: Negative for injury, pain, and swelling, Cardiovascular: Negative for chest pain, palpitations, and edema, Respiratory: Negative for shortness of breath, cough, wheezing, and pleuritic chest pain, Abdomen/GI: Negative for abdominal pain, nausea, vomiting, diarrhea, and constipation, Back: Negative for injury and pain, MS/Extremity: Negative for injury and deformity, Skin: Negative for injury, rash, and discoloration, Psych: Negative for depression, anxiety, suicide ideation, homicidal ideation, and hallucinations, Allergy/Immunology: Negative for hives, rash, and allergies, Endocrine: Negative for neck swelling, polydipsia, polyuria, polyphagia, and marked weight changes, Hematologic/Lymphatic: Negative for swollen nodes, abnormal bleeding, and unusual bruising. 18:10 : Positive for urinary symptoms, urinary frequency, burning with urination, difficulty urinating. 18:10 Neuro: Positive for altered mental status, dizziness, weakness. Exam: 18:10 Constitutional: This is a well developed, well nourished patient who is awake, alert, mingo and in no acute distress. Head/Face: Normocephalic, atraumatic. Eyes: Pupils equal round and reactive to light, extra-ocular motions intact. Lids and lashes normal. Conjunctiva and sclera are non-icteric and not injected. Cornea within normal limits. Periorbital areas with no swelling, redness, or edema. ENT: Nares patent. No nasal discharge, no septal abnormalities noted. Tympanic membranes are normal and external auditory canals are clear. Oropharynx with no redness, swelling, or masses, exudates, or evidence of obstruction, uvula midline. Mucous membranes moist. Neck: Trachea midline, no thyromegaly or masses palpated, and no cervical lymphadenopathy. Supple, full range of motion without nuchal rigidity, or vertebral point tenderness. No Meningismus. Chest/axilla: Normal chest wall appearance and motion. Nontender with no deformity. No lesions are appreciated. Cardiovascular: Regular rate and rhythm with a normal S1 and S2. No gallops, murmurs, or rubs. Normal PMI, no JVD. No pulse deficits. Respiratory: Lungs have equal breath sounds bilaterally, clear to auscultation and percussion. No rales, rhonchi or wheezes noted. No increased work of breathing, no retractions or nasal flaring. Abdomen/GI: Soft, non-tender, with normal bowel sounds. No distension or tympany. No guarding or rebound. No evidence of tenderness throughout. Back: No spinal tenderness. No costovertebral tenderness. Full range of motion. Skin: Warm, dry with normal turgor. Normal color with no rashes, no lesions, and no evidence of cellulitis. MS/ Extremity: Pulses equal, no cyanosis. Neurovascular intact. Full, normal range of motion. Neuro: Awake and alert, GCS 15, oriented to person, place, time, and situation. Cranial nerves II-XII grossly intact. Motor strength 5/5 in all extremities. Sensory grossly intact. Cerebellar exam normal. Normal gait. Psych: Awake, alert, with orientation to person, place and time. Behavior, mood, and affect are within normal limits. 18:10 ECG was reviewed by the Attending Physician. Vital Signs: 14:05 BP 118 / 56; Pulse 70; Resp 18; Temp 97.1; Pulse Ox 95% ; Weight 122.47 kg; Pain 0/10; ll1 16:30 BP 138 / 78; Pulse 69; Resp 18; Pulse Ox 94% on R/A; em6 18:30 BP 162 / 80; Pulse 71; Resp 18; Pulse Ox 95% on R/A; em6 MDM: 16:12 Patient medically screened. mingo 18:12 Differential diagnosis: kidney stone, nonspecific abdominal pain, urinary tract mingo infection. Differential Diagnosis: CVA, electrolyte abnormality, hypoglycemia, intracranial bleed, seizure, sepsis, TIA, UTI, volume depletion. Data reviewed: vital signs, nurses notes, lab test result(s), EKG, radiologic studies, CT scan, plain films. Data interpreted: security monitor: rate is 69 beats/min, rhythm is regular, Pulse oximetry: on room air is 94 %. Test interpretation: by ED physician or midlevel provider: ECG, plain radiologic studies. Counseling: I had a detailed discussion with the patient and/or guardian regarding: the historical points, exam findings, and any diagnostic results supporting the discharge/admit diagnosis, lab results, radiology results, the need for further work-up and treatment in the hospital. 03/09 16:16 Order name: Basic Metabolic Panel; Complete Time: 18:46 mingo 03/09 16:16 Order name: CBC with Diff; Complete Time: 18:23 mingo 03/09 16:16 Order name: LFT's; Complete Time: 18:46 mingo 03/09 16:16 Order name: Magnesium; Complete Time: 18:46 mingo 03/09 16:16 Order name: NT PRO-BNP; Complete Time: 18:46 mingo 03/09 16:16 Order name: PT-INR; Complete Time: 18:23 mingo 03/09 16:16 Order name: Troponin HS; Complete Time: 18:46 mingo 03/09 16:16 Order name: Urine Microscopic Only; Complete Time: 19:40 [facility] 03/09 17:51 Order name: Urine Dipstick-Ancillary; Complete Time: 18:05 [facility] 03/09 18:15 Order name: SARS-COV-2 Antigen Rapid; Complete Time: 19:40 03/09 18:15 Order name: Urine Culture bd 03/10 03:11 Order name: CBC with Automated Diff; Complete Time: 04:00 [facility] 03/10 03:13 Order name: Ammonia; Complete Time: 04:00 [facility] 03/10 03:37 Order name: Basic Metabolic Panel; Complete Time: 04:00 [facility] 03/09 16:16 Order name: XRAY Chest (1 view); Complete Time: 18:23 [facility] 03/09 16:16 Order name: EKG; Complete Time: 16:17 [facility] 03/09 16:16 Order name: Cardiac monitoring; Complete Time: 16:44 [facility] 03/09 16:16 Order name: EKG - Nurse/Tech; Complete Time: 16:44 [facility] 03/09 16:16 Order name: CT Head Brain wo Cont; Complete Time: 18:23 [facility] 03/09 18:50 Order name: CT Stone Protocol [facility] 03/09 18:54 Order name: Stone Protocol; Complete Time: 20:46 [facility] 03/10 03:37 Order name: Phosphorus; Complete Time: 04:00 [facility] 03/10 03:37 Order name: Lipid Profile; Complete Time: 04:00 [facility] 03/10 03:37 Order name: Magnesium; Complete Time: 04:00 [facility] 03/10 03:37 Order name: Thyroid Stimulating Hormone; Complete Time: 04:00 [facility] 03/10 16:04 Order name: MRI [facility] 03/09 16:16 Order name: IV Saline Lock; Complete Time: 18:02 [facility] 03/09 16:16 Order name: Labs collected and sent; Complete Time: 18:02 [facility] 03/09 16:16 Order name: O2 Per Protocol; Complete Time: 16:44 [facility] 03/09 16:16 Order name: O2 Sat Monitoring; Complete Time: 16:44 [facility] 03/09 16:16 Order name: Urine Dipstick-Ancillary (obtain specimen); Complete Time: 18:01 [facility] 03/09 18:04 Order name: Deng; Complete Time: 18:05 em6 EC:10 Rate is 69 beats/min. Rhythm is regular. QRS Docena is Normal. DC interval is normal. QRS mingo interval is normal. QT interval is normal. No Q waves. T waves are Normal. No ST changes noted. Clinical impression: NSR w/ Non-specific ST/T Changes and No evidence of ischemia. Interpreted by me. Reviewed by me. Administered Medications: 18:01 Drug: NS 0.9% 500 ml Route: IV; Rate: bolus; Site: right antecubital; em6 19:40 Follow up: Response: No adverse reaction; IV Status: Completed infusion; IV Intake: em6 500ml 18:01 Drug: foLIC Acid 1 mg Route: IVPB; Site: right antecubital; em6 18:30 Follow up: Response: No adverse reaction em6 18:32 Drug: Cefepime 1 grams Route: IVPB; Rate: 200 ml/hr; Infused Over: 30 mins; Site: right em6 antecubital; 19:09 Follow up: Response: No adverse reaction; IV Status: Completed infusion; IV Intake: em6 100ml 20:34 Drug: Valium (diazepam) 5 mg Route: PO; em6 21:00 Follow up: Response: No adverse reaction em6 Disposition Summary: 03/09/22 18:14 Hospitalization Ordered Hospitalization Status: Observation mingo Provider: Michele Virgen cha Condition: Fair mingo Problem: new mingo Symptoms: have improved mingo Bed/Room Type: Standard mingo Location: Telemetry/MedSurg (observation)(03/10/22 14:35) eb Room Assignment: 224(03/10/22 14:35) eb Diagnosis - UTI/ Urinary tract infection, site not specified mingo - Altered mental status, unspecified mingo - Obesity, unspecified mingo - Dementia in other diseases classified elsewhere without behavioral disturbance mingo - Elevated white blood cell count mingo - Unspecified combined systolic (congestive) and diastolic (congestive) heart failure mingo - Unspecified kidney failure - INSUFFICENCY mingo Forms: - Medication Reconciliation Form mingo - SBAR form mingo Signatures: Dispatcher [employer] Arjun Kaplan MD MD cha Garcia, Cindy RN RN Sofia Isabel Lynsay, RN RN ll1 Preeti Moreno RN RN em6 Sujata Hughes PA-C PAClarita [id number] Corrections: (The following items were deleted from the chart) 21:24 18:14 Telemetry/MedSurg (observation) mingo cg 18:14 mingo cg 03/10 14:35 03/09 21:24 [facility] ER HOLD cg eb 03/10 14:35 03/09 21:24 ERHOLD- cg eb
[2022-03-09 18:17] LABS: Protime INR 1.18
[2022-03-09 18:18] LABS: Absolute Lymphocytes (CBC) 3.2 K/uL (0.7-4.9); Hematocrit 39.9 % (36.0-45.0); Lymphocytes % 28.8 % (15.3-44.8); MCV 87.7 fL (80-100); MPV 8.4 fL (7.6-11.3); RBC Red Blood Cell Count 4.55 M/uL (3.86-4.86)
[2022-03-09] MEDS ORDERED: CEFEPIME 1 GM/VIAL ONE (18:24)
[2022-03-09] MEDS ORDERED: NA CHLORIDE 0.9% 100 ML IV ONE (18:24)
[2022-03-09 18:28] LABS: Albumin 3.2 g/dL (3.4-5.0); Bilirubin Direct 0.3 mg/dL (0-0.2); Bilirubin Total 0.7 mg/dL (0.2-1.0); Magnesium 2.1 mg/dL (1.8-2.4); Protein, Total 8.7 g/dL (6.4-8.2); Troponin High Sensitivity 7.2 pg/mL (<58.9)
[2022-03-09 18:33] LABS: Urine Bacteria <20 /HPF (<20); Urine RBC <5 /HPF (None Seen)
[2022-03-09 18:56] LABS: SARS-CoV-2 Antigen Rapid Res Negative (Negative)
--- NOTE | 2022-03-09 19:41 | RAD REPORT ---
EXAM DESCRIPTION: CT - Stone Protocol - 03/09/2022 7:21 pm CLINICAL HISTORY: Flank pain. FLANK COMPARISON: Abdomen Pelvis Wo Contrast dated 06/18/2020 TECHNIQUE: Axial images were obtained without oral or IV contrast. Lack of contrast limits solid org an and vascular assessment. The [id number] spans the entirety of the system partially obscuring uppermost abdomen and lung bases. Coronal reformatted images were obtained and reviewed. All CT scans are performed using dose optimization technique as appropriate and may include automated exposure control or mA/KV adjustment according to patient size. FINDINGS: The lower lung magdaleno are clear. There is mild nodular contour defect in the liver. This likely indicates early cirrhosis.Spleen is up per limit of normal. The pancreas and adrenal glands are normal. No pathologic lymphadenopathy in the abdomen or pelvis. No urinary tract stones or obstructive uropathy. No bowel obstruction, free air, free fluid or abscess. Normal appendix noted.Mild sigmoid diverticulo sis without diverticulitis. No significant bony abnormality. IMPRESSION: No urinary tract stones or obstructive uropathy. Mild liver cirrhosis.
--- NOTE | 2022-03-09 20:18 | P.HP ---
Certification for Inpatient Patient admitted to: Inpatient With expected LOS: >2 Midnights Patient will require the following post-hospital care: None Practitioner: I am a practitioner with admitting privileges, knowledge of patient current condition, hospital course, and medical plan of care. Services: Services provided to patient in accordance with Admission requirements found in Title 42 Section 412.3 of the Code of Federal Regulations Patient History Date of Service: 03/09/22 Primary Care Provider: Mikey Reason for admission: UTI, AMS History of Present Illness: Patient is a 72 year old female with past medical history significant for dementia, hypertension, non-alcoholic fatty liver disease, and CKD3b who presented to the ED with worsening agitation/altered mental status. Son reports that patient has gotten to the point where she barely gets out of her chair, is losing control of her bowels, and easily forgets who her is (whom she lives with). Today, her labs are significant for WBC 11.1, Cr 1.42, BUN 22, AST 61, alk phos 312, BNP 434, urine nitrite and WBC positive. Head CT and abdomen/pelvis CT negative. Chest xray showed mild CHF. She was given cefepime in ED. ED provider wishes to admit patient for further management. Allergies sulfamethoxazole [From Bactrim] Allergy (Verified 01/12/22 11:56) Unknown trimethoprim [From Bactrim] Allergy (Verified 01/12/22 11:56) Unknown Home medications list reviewed: Yes Home Medications: Cranberry Conc/C/Bacill Coag [Cranberry Tablet] 1 tab PO DAILY 01/12/22 Gabapentin 1 tab PO DAILY 01/12/22 Gabapentin 2 tab PO DAILY AT SUPPER 01/12/22 LORazepam [Lorazepam] 1 tab PO BEDTIME 01/12/22 Nebivolol HCl [Bystolic*] 1 tab PO DAILY 01/12/22 Omeprazole [Prilosec] 1 tab PO DAILY 01/12/22 Ropinirole HCl 1 tab PO BEDTIME 01/12/22 Venlafaxine HCl *Xr* [Effexor XR] 1 tab PO DAILY 01/12/22 Venlafaxine HCl [Effexor] 1 tab PO BEDTIME 01/12/22 - Past Medical/Surgical History Diabetic: No -: HTN -: UTIs -: Insomia -: Dementia -: CKD3b -: Non-Alcoholic Fatty Liver Disease -: -: R achilles tendon repair Psychosocial/ Personal History: Patient lives at home with her . - Family History Mother -: Other (see notes) (Alzheimers) Father -: Heart disease, Stroke - Social History Smoking Status: Never smoker Alcohol use: No CD- Drugs: No Caffeine use: No Place of Residence: Home Review of Systems Gastrointestinal: Diarrhea Musculoskeletal: Back Pain, Leg Pain Physical Examination - Physical Exam General: Alert, In no apparent distress, Oriented x2, Obese HEENT: Atraumatic, PERRLA, EOMI, Sclerae nonicteric Neck: Supple, 2+ carotid pulse no bruit, No LAD, Without JVD or thyroid abnormality Respiratory: Clear to auscultation bilaterally, Normal air movement Cardiovascular: Regular rate/rhythm, Normal S1 S2 Gastrointestinal: Normal bowel sounds, No tenderness Musculoskeletal: No tenderness Integumentary: No rashes Neurological: Normal speech, Normal strength at 5/5 x4 extr, Normal tone, Dementia - Studies Laboratory Data (last 24 hrs) 03/09/22 17:52: PT 13.0 H, INR 1.18 03/09/22 17:52: WBC 11.10 H, Hgb 12.8, Hct 39.9, Plt Count 249 03/09/22 17:52: Sodium 140, Potassium 4.0, BUN 22 H, Creatinine 1.43 H, Glucose 96, Magnesium 2.1, Total Bilirubin 0.7, AST 61 H, ALT 36, Alkaline Phosphatase 312 H Assessment and Plan - Problems (Diagnosis) (1) Dementia Current Visit: Yes Status: Chronic Qualifiers: Dementia type: unspecified type Dementia severity: moderate Dementia behavioral or psychological symptom: with other behavioral disturbance Qualified Code(s): F03.B18 - Unspecified dementia, moderate, with other behavioral disturbance (2) UTI (urinary tract infection) Current Visit: Yes Status: Acute Qualifiers: Urinary tract infection type: acute cystitis Hematuria presence: without hematuria Qualified Code(s): N30.00 - Acute cystitis without hematuria (3) Non-alcoholic fatty liver disease Current Visit: Yes Status: Chronic (4) Hypertension Current Visit: Yes Status: Chronic Qualifiers: Hypertension type: primary hypertension Qualified Code(s): I10 - Essential (primary) hypertension (5) CKD (chronic kidney disease) Current Visit: Yes Status: Acute Qualifiers: Chronic kidney disease stage: stage 3 (moderate) Chronic kidney disease sta ge 3 subtype: stage 3b (GFR 30-44) Qualified Code(s): N18.32 - Chronic kidney disease, stage 3b - Plan Case management consult. Patient will require home health or adjunct faculty for medical terminology placement on disposition. Continue cefepime for UTI. Urine culture obtained. Deng in place. Altered mental status is likely secondary to worsening dementia and UTI. Patient is oriented to self and place. Kidney function appears stable per chart review. Physical therapy consult. Monitor and replete electrolytes per protocol. Reconcile and continue home medications. Lovenox for VTE prophylaxis Full code Discharge Plan: Home Plan to discharge in: Greater than 2 days - Advance Directives Does patient have a Living Will: Yes Does patient have a Durable POA for Healthcare: Yes - Code Status/Comfort Care Code Status Assessed: Yes (Full) Critical Care: No Time Spent Managing Pts Care (In Minutes): 50
[2022-03-09] MEDS ORDERED: DIAZEPAM 5 MG TABLET ONE (20:30)
[2022-03-09] MEDS ORDERED: ACETAMINOPHEN 500 MG TAB PO PRN (20:36)
[2022-03-09] MEDS ORDERED: ONDANSETRON 4 MG/2 ML VIAL IV PRN (20:36)
[2022-03-09] MEDS: CEFEPIME 1 GM in NA CHLORIDE 0.9% 100 ML IV SCH (20:43)
[2022-03-09] MEDS ORDERED: NA CHLORIDE 0.9% 1,000 ML ONE (20:58)
[2022-03-09] MEDS ORDERED: NA CHLORIDE 0.9% 1,000 ML IV SCH (21:00)
[2022-03-09] MEDS ORDERED: HYDROCODONE/APAP 7.5/325 MG TAB ONE (23:50)
[2022-03-09] MEDS: HYDROCODONE/APAP 7.5/325 MG TAB PO PRN (23:52)
[2022-03-10] MEDS ORDERED: QUETIAPINE 25 MG TAB PO PRN (00:40)
[2022-03-10 03:08] LABS: Absolute Lymphocytes (CBC) 3.4 K/uL (0.7-4.9); Hematocrit 33.5 % (36.0-45.0); Lymphocytes % 29.2 % (15.3-44.8); MCV 86.7 fL (80-100); MPV 8.5 fL (7.6-11.3); RBC Red Blood Cell Count 3.87 M/uL (3.86-4.86)
[2022-03-10 03:34] LABS: Magnesium 1.8 mg/dL (1.8-2.4); Potassium 3.9 mmol/L (3.5-5.1); Thyroid Stimulating Hormone 3.19 uIU/mL (0.360-3.740)
[2022-03-10] MEDS: PANTOPRAZOLE 40MG TABLET PO SCH (06:30)
[2022-03-10] MEDS ORDERED: POTASSIUM CL SA 10 MEQ TAB PO ONE ×2 (08:03→09:57)
[2022-03-10] MEDS ORDERED: MAGNESIUM SULFATE 1 gm IVPB 1 GM/100 ML BAG IV ONE ×2 (08:03→09:58)
[2022-03-10] MEDS: GABAPENTIN 300 MG CAP PO SCH (09:00)
[2022-03-10] MEDS: VENLAFAXINE HCL XR 75 MG CAP PO SCH (09:00)
[2022-03-10] MEDS: CEFEPIME 1 GM in NA CHLORIDE 0.9% 100 ML IV SCH ×2 (09:00→21:24)
[2022-03-10] MEDS: ENOXAPARIN 30 MG/0.3 ML SQ SCH (09:00)
[2022-03-10] MEDS: NEBIVOLOL HCL 20 MG TABLET PO SCH (09:00)
[2022-03-10] MEDS ORDERED: GABAPENTIN 300 MG CAP ONE (09:57)
[2022-03-10] MEDS ORDERED: PANTOPRAZOLE 40MG TABLET PO ONE (09:57)
[2022-03-10] MEDS ORDERED: ENOXAPARIN 30 MG/0.3 ML SQ ONE (09:58)
[2022-03-10] MEDS ORDERED: CEFEPIME 1 GM/VIAL ONE (09:59)
[2022-03-10] MEDS ORDERED: NA CHLORIDE 0.9% 100 ML IV ONE (09:59)
[2022-03-10] MEDS ORDERED: NA CHLORIDE 0.9% 1,000 ML ONE (10:31)
--- NOTE | 2022-03-10 11:41 | P.PN ---
Subjective Date of Service: 03/10/22 Patient is pleasantly confused. Answers all my questions fairly appropriately. The only thing that she keeps messing up on is when I ask her where she has. She keeps thinking she is at [facility]. He realizes does not where she has and starts laughing about it. She lives at home with her who must have a hard time caring for her. Will discuss with him regarding plan of care going forward. We will get physical therapy to get her out of bed and ambulate. If she is doing better neurologically then she may be able to go home in the morning. Review of Systems 10-point ROS is otherwise unremarkable Physical Examination - Vital Signs Temperature: 99.3 F Blood Pressure: 149/68 Pulse: 77 Respirations: 17 Pulse Ox (%): 93 - Physical Exam General: Alert, In no apparent distress, Oriented x2 HEENT: Atraumatic, PERRLA, EOMI Neck: Supple, JVD not distended Respiratory: Clear to auscultation bilaterally, Normal air movement Cardiovascular: Regular rate/rhythm, Normal S1 S2 Gastrointestinal: Normal bowel sounds, No tenderness Musculoskeletal: No tenderness Integumentary: No rashes Neurological: Normal speech, Normal tone, Normal affect Lymphatics: No axilla or inguinal lymphadenopathy - Studies Laboratory Data (last 24 hrs) 03/09/22 17:52: PT 13.0 H, INR 1.18 03/09/22 17:52: WBC 11.10 H, Hgb 12.8, Hct 39.9, Plt Count 249 03/09/22 17:52: Sodium 140, Potassium 4.0, BUN 22 H, Creatinine 1.43 H, Glucose 96, Magnesium 2.1, Total Bilirubin 0.7, AST 61 H, ALT 36, Alkaline Phosphatase 312 H Medications List Reviewed: Yes Assessment & Plan - Problems (Diagnosis) (1) Toxic encephalopathy Current Visit: Yes Status: Acute (2) UTI (urinary tract infection) Current Visit: Yes Status: Acute Qualifiers: Urinary tract infection type: acute cystitis Hematuria presence: without hematuria Qualified Code(s): N30.00 - Acute cystitis without hematuria (3) Dementia Current Visit: Yes Status: Chronic Qualifiers: Dementia type: unspecified type Dementia severity: moderate Dementia behavioral or psychological symptom: with other behavioral disturbance Qualified Code(s): F03.B18 - Unspecified dementia, moderate, with other behavioral disturbance (4) Hypertension Current Visit: Yes Status: Chronic Qualifiers: Hypertension type: primary hypertension Qualified Code(s): I10 - Essential (primary) hypertension (5) Non-alcoholic fatty liver disease Current Visit: Yes Status: Chronic - Plan Plan: 1. Continue with gentle hydration 2. Continue with IV antibiotic therapy 3. Awaiting culture results 4. Continue with physical therapy 5. Out of bed into a chair with meals and ambulate if she does well with therapy 6. Continue with home medications 7. GI and DVT prophylaxis Patient lives at home with her . Plan to discharge her back with her unless he is no longer able to care for her. Discharge Plan: Home Plan to discharge in: 48 Hours - Advance Directives Does patient have a Living Will: Yes Does patient have a Durable POA for Healthcare: Yes - Code Status/Comfort Care Code Status Assessed: Yes Code Status: Full Code Critical Care: No Time Spent Managing PTS Care (In Minutes): 35
--- NOTE | 2022-03-10 16:03 | RAD REPORT ---
EXAM DESCRIPTION: MRI - Brain Wo Cont - 03/10/2022 3:47 pm CLINICAL HISTORY: altered mental status COMPARISON: No comparisons TECHNIQUE: Sagittal T1-weighted images were obtained along with PD/heavily T2-weighted and T2-FLAIR images. Axial DWI and ADC mapping sequences were also obtained along with coronal heavily T2-weighted images were obtained. FINDINGS: No intracranial hemorrhage, mass or acute infarction. There is no edema or shift of midlin e structures. No extra-axial fluid collections. Signal voids are seen as a normal finding in the valeriano r intracranial vessels. Mild to moderate cerebral atrophy chronic small vessel ischemic changes. Mastoid air cells and paranasal sinuses are clear. IMPRESSION: No acute intracranial abnormality. Specifically, no evidence of acute infarct. Mild to m oderate chronic small vessel ischemic changes.
[2022-03-10] MEDS: HYDROCODONE/APAP 7.5/325 MG TAB PO PRN (18:10)
[2022-03-10] MEDS ORDERED: ROPINIROLE HCL 1 MG TAB PO SCH (21:00)
[2022-03-10] MEDS: LORAZEPAM 1 MG TABLET PO SCH (21:00)
[2022-03-10 21:47] VITALS: BMI 52.0
[2022-03-11 03:31] VITALS: O2SAT 91
[2022-03-11 04:07] LABS: Absolute Lymphocytes (CBC) 3.1 K/uL (0.7-4.9); Hematocrit 34.2 % (36.0-45.0); Lymphocytes % 28.6 % (15.3-44.8); MCV 87.2 fL (80-100); RBC Red Blood Cell Count 3.92 M/uL (3.86-4.86)
[2022-03-11] MEDS: LORAZEPAM 1 MG TABLET PO SCH (04:24)
[2022-03-11] MEDS: PANTOPRAZOLE 40MG TABLET PO SCH (06:38)
[2022-03-11 08:19] VITALS: BP 149/57; TEMP 98.2
--- NOTE | 2022-03-11 08:34 | P.DS ---
Admission Date: 03/09/22 Discharge Date: 03/11/22 Primary Care Provider: Mikey Disposition: DC HOME/HOME HEALTH CARE Discharge Condition: GOOD Reason for Admission: UTI, AMS Hospital Course: DIAGNOSES: # Acute Toxic Metabolic Encephalopathy possibly secondary to Barros-Sensitive Escherichia Coli Urinary Tract Infection (resolved) # Suspected Underlying Dementia # KDIGO Stage I Acute Kidney Injury on Chronic Kidney Disease Stage III (resolved) # Non-Alcoholic Fatty Liver Disease with Liver Cirrhosis # Hypertension HOSPITAL COURSE: Ms. Robina Stevens is a 72 year old female with a past medical history significant for chronic kidney disease stage III, liver cirrhosis, hypertension, and suspected dementia who was admitted to the [facility] on 03/09/2022 for altered mental status. She was admitted to the Medicine service. Upon further evaluation, she was found to have a mild acute kidney injury. Her urinalysis returned positive for nitrite, trace leukocytes, and 20-50 WBCs. Her urine culture returned positive for barros-sensitive Escherichia Coli. Her CT head revealed, "no acute intracranial abnormality." CT abdomen revealed, "no urinary tract stones or obstructive uropathy. Mild liver cirrhosis." MRI brain revealed, "no acute intracranial abnormality. Specifically, no evidence of acute infarct. Mild to moderate chronic small vessel ischemic changes." She was treated with antibiotics, and over the course of her hospitalization, her mental status improved significantly. Physical Therapy evaluated her and recommended continued physical therapy. I had an extensive discussion with her, her (Mr. Kent), and her son (Mr. Naranjo). They decided that they do not want her to be in a fpc, assisted living, or inpatient rehab facility at this time. It is their preference that she be discharged home with Home Health. With the assistance of case management, this was arranged. Her family has voiced concern that she seems slightly depressed and they have requested an outpatient Psychiatry referral. We have provided them with Dr. Rebolledo's office contact information. On 03/11/2022, she was seen on morning rounds and deemed medically stable for discharge. She was discharged with instructions to schedule follow-up appointments with her PCP (JEWELS Jensen), with Neurology (Dr. Wahl), and with Psychiatry (Dr. Rebolledo). She was provided a prescription for cefdinir. She and her family members were given the opportunity to ask questions and reported no further questions. Furthermore, all questions were answered to the best of my ability. A copy of this discharge summary will be sent to the above providers to facilitate continuity of care. Today, I personally spent 25 minutes on her case, of which greater than 50% of the time was spent in patient education, counseling, and coordination of care as described above. Vital Signs/Physical Exam: Temp Pulse Resp BP Pulse Ox 98.2 F 72 16 149/57 H 90 L 03/11/22 08:00 03/11/22 08:00 03/11/22 08:00 03/11/22 08:00 03/11/22 08:00 General: Alert, In no apparent distress, Oriented x2 (baseline per family.) HEENT: Atraumatic, PERRLA, Mucous membr. moist/pink, EOMI, Sclerae nonicteric Neck: JVD not distended Respiratory: Clear to auscultation bilaterally, Normal air movement Cardiovascular: No edema, Regular rate/rhythm, Normal S1 S2, No gallops, No rubs, No murmurs Capillary refill: <2 Seconds Gastrointestinal: Normal bowel sounds, Soft and benign, Non-distended, No tenderness, No rebound, No guarding Musculoskeletal: No clubbing Integumentary: No rashes Neurological: Normal speech, Cranial nerves 3-12 intact, Normal affect Laboratory Data at Discharge: WBC 11.00 K/uL (4.3-10.9) H 03/11/22 03:48 Hgb 11.4 g/dL (12.0-15.0) L 03/11/22 03:48 Hct 34.2 % (36.0-45.0) L 03/11/22 03:48 Plt Count 234 K/uL (152-406) 03/11/22 03:48 PT 13.0 SECONDS (9.5-12.5) H 03/09/22 17:52 INR 1.18 03/09/22 17:52 Sodium 142 mmol/L (136-145) 03/11/22 03:48 Potassium 4.0 mmol/L (3.5-5.1) 03/11/22 03:48 BUN 17 mg/dL (7-18) 03/11/22 03:48 Creatinine 1.27 mg/dL (0.55-1.3) 03/11/22 03:48 Glucose 113 mg/dL (74-106) H 03/11/22 03:48 Phosphorus 3.0 mg/dL (2.5-4.9) 03/10/22 02:39 Magnesium 2.0 mg/dL (1.8-2.4) 03/11/22 03:48 Total Bilirubin 0.7 mg/dL (0.2-1.0) 03/09/22 17:52 AST 61 U/L (15-37) H 03/09/22 17:52 ALT 36 U/L (12-78) 03/09/22 17:52 Alkaline Phosphatase 312 U/L (45-117) H 03/09/22 17:52 Triglycerides 165 mg/dL (<150) H 03/10/22 02:39 Cholesterol 167 mg/dL (<200) 03/10/22 02:39 HDL Cholesterol 32 mg/dL (40-60) L 03/10/22 02:39 Cholesterol/HDL Ratio 5.22 03/10/22 02:39 Home Medications: Gabapentin 1 tab PO DAILY 01/12/22 LORazepam [Lorazepam] 1 tab PO BEDTIME 01/12/22 Nebivolol HCl [Bystolic*] 1 tab PO DAILY 01/12/22 Omeprazole [Prilosec] 1 tab PO DAILY 01/12/22 Ropinirole HCl 1 tab PO BEDTIME 01/12/22 Venlafaxine HCl *Xr* [Effexor XR] 1 tab PO DAILY 01/12/22 Cefdinir [Cefdinir*] 300 mg PO BID 7 Days #14 cap 03/11/22 New Medications: Cefdinir [Cefdinir*] 300 mg PO BID 7 Days #14 cap Physician Discharge Instructions: 1. Please schedule a follow-up appointment with your PCP (JEWELS Jensen) in 3-5 days 2. Please schedule a follow-up appointment with Neurology (Dr. Wahl) in 5-7 days 3. Please schedule a follow-up appointment with Psychiatry (Dr. Rebolledo) in 5- 7 days Diet: AHA Activity: Fall precautions Followup: Dwight Jensen PA [ALLIED HEALTH PROFESSIONAL] - Dylan Wahl MD [ASSOCIATE-ACTIVE - CAN ADMIT] - [facility] [ACTIVE - CAN ADMIT] - Time spent managing pt's care (in minutes): 25
[2022-03-11] MEDS: ENOXAPARIN 30 MG/0.3 ML SQ SCH (08:35)
[2022-03-11] MEDS: GABAPENTIN 300 MG CAP PO SCH (08:35)
[2022-03-11] MEDS: VENLAFAXINE HCL XR 75 MG CAP PO SCH (08:35)
[2022-03-11] MEDS: CEFEPIME 1 GM in NA CHLORIDE 0.9% 100 ML IV SCH (08:36)
[2022-03-11] MEDS: NEBIVOLOL HCL 20 MG TABLET PO SCH (09:48)
--- NOTE | 2022-03-12 19:20 | EKG ---
Test Date: 2022-03-09 Test Time: 16:38:00 Intelligence Officer Basic: MEASUREMENT RESULTS: Intervals: Rate: 69 WI: 180 QRSD: 96 QT: 436 QTc: 467 [place]: P: 67 WI: 180 QRS: 68 T: 57 INTERPRETIVE STATEMENTS: Normal sinus rhythm Normal ECG Compared to ECG 11/30/2015 12:09:07 Fusion complex(es) no longer present Myocardial infarct finding no longer present Electronically Signed On 03-12-22 19:11:19 KINDERGARTEN TUTOR by Pantera Kate
== END 2022-03-11 10:43 | disposition home health service (06) | DRG 689 ==
LOC: ER 14:00 → ERHOLD 19:57 → 2ND 03-10 15:33
PROVIDERS: ADMIT Hospitalist; ATTEND Internal Medicine
DX: N30.00 Acute cystitis without hematuria (principal); G92.8 Other toxic encephalopathy; Z68.43 Body mass index [BMI] 50.0-59.9, adult; F03.B18 Unspecified dementia, moderate, with other behavioral disturbance; N17.9 Acute kidney failure, unspecified; E66.9 Obesity, unspecified; K76.0 Fatty (change of) liver, not elsewhere classified; I12.9 Hypertensive chronic kidney disease with stage 1 through stage 4 chronic kidney disease, or unspecified chronic kidney disease; N18.30 Chronic kidney disease, stage 3 unspecified; K21.9 Gastro-esophageal reflux disease without esophagitis; K74.60 Unspecified cirrhosis of liver; D72.829 Elevated white blood cell count, unspecified; B96.20 Unspecified Escherichia coli [E. coli] as the cause of diseases classified elsewhere; Z88.1 Allergy status to other antibiotic agents; Z79.01 Long term (current) use of anticoagulants; Z28.310 Unvaccinated for COVID-19; Z79.899 Other long term (current) drug therapy; Z20.822 Contact with and (suspected) exposure to COVID-19
CPT/HCPCS: 36415; 51702; 70450; 70551; 71045; 74176; 76377; 80048; 80061; 80076; 81003; 81015; 82140; 83735; 83880; 84100; 84443; 84484; 85025; 85610; 87077; 87086; 87088; 87186; 87811; 93005; 96361; 96365; 96375; 97110; 97161; 99285; J0692; J1650; J3475; J7030; J7040

== ENCOUNTER 2022-06-27 09:37 | Emergency (ER) | payer OTHER ==
--- OUTSIDE RECORDS SUMMARY | 2022-06-27 09:41 | XMS REPORT | Continuity of Care Document ---
:1950 Author Organization [facility] t Address [address] [place] [address] [address] [place] [address] Care Team Providers Name Role Phone Pcp, Patient Does Not Have A Primary Care Physician [phone] Attending Clinician Unavailable Zheng Conner MD Attending Clinician DARLIN BROCK Attending Clinician Unavailable Darlin Monroe Attending Clinician Doctor Unassigned, [place] Attending Clinician Unavailable ZHENG CONNER Attending Clinician Unavailable EMILIA PORTILLO Attending Clinician Unavailable ONDINA GURROLA Attending Clinician Unavailable Provider, [facility] Attending Clinician Unavailable Ondina Dominguez Attending Clinician EDUARDO CUNHA Attending Clinician Unavailable EDUARDO CUNHA Attending Clinician Unavailable Yessica Estevez MD Attending Clinician Vandana Attending Clinician Unavailable [id number] Admitting Clinician Unavailable Vandana Admitting Clinician Unavailable Payers Payer Name Policy Type Policy Number Effective Date Expiration Date Renaldo elamdakota [facility] [id number] COMMERCIAL [id number] 2017 NON-CONTRACT 00:00:00 GENERIC [place]IC[place]: [id number] 2013 [employer] 00:00:00 [place] [id number] 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) Problems Condition Condition Condition Status Onset Resolution Last Treating Co mments Source Name Details Category Date Date Treatment Clinician Date No known No known Disease Unive rs active active ity of problems problems [facility] Allergies, Adverse Reactions, Alerts Allergy Allergy Status Severity Reaction(s) Onset Inactive Treating Comm ents Source Name Type Date Date Clinician Sulfa Propensi Active Rash Univers (Sulfona ty to 2-15 ity of mide adverse 00:00: [place] Antibiot reaction 00 Medica l ics) s Branch SULFA Drug Active Rash Univers (SULFONA Class 2-15 ity of MIDE 00:00: [place] ANTIBIOT 00 Medical ICS) Branch Social History Social Habit Start Date Stop Date Quantity Comments Source Exposure to Not sure [facility]-CoV-2 [place] Medical (event) Branch Alcohol intake 2021-04-30 2021-04-30 Current [facility] 00:00:00 00:00:00 non-drinker of [facility] alcohol Branch (finding) Tobacco use and 2017-06-08 2017-06-08 Never used Universit y of exposure 00:00:00 00:00:00 [facility] Sex Assigned At [birth year] Universit y of 00:00:00 00:00:00 [facility] Smoking Status Start Date Stop Date Source Never smoker [facility] Medications Ordered Filled Start Stop Current Ordering Indication Dosage Frequency Signature Comments Components Source Medication Medication Date Date Medication? Clinician (SIG) Name Name sodium 2020- No [id number] 30mg Uni vers hyaluronate 04-30 9109 ity of (viscosup) 22:15: 20:07 [place] (ORTHOVISC) 00 :00 Medical injection Branch 30 mg sodium 2020- No [id number] 30mg 30 mg, U nivers hyaluronate 04-30 9109 Intra-mikey i ty of (viscosup) 22:15: 20:07 Juana garcia s (ORTHOVISC) 00 :00 ONCE, 1 Medic al injection dose, On Branch 30 mg 04/30/21 at 1615, Routine sodium 2020-04- No [id number] 30mg Uni vers hyaluronate 001-05 9109 ity of (viscosup) 17:00: 15:54 [place] (ORTHOVISC) 00 :00 Medical injection Branch 30 mg sodium 2020-04- No [id number] 30mg 30 mg, U nivers hyaluronate 01-05 9109 Intra-mikey i ty of (viscosup) 17:00: 15:54 culJuana fritz s (ORTHOVISC) 00 :00 ONCE, 1 Medic al injection dose, On Branch 30 mg 01/25/21 at 1200, Routine sodium 2020- No [id number] 30mg Uni vers hyaluronate 01-05 9109 ity of (viscosup) 19:45: 20:18 [place] (ORTHOVISC) 00 :00 Medical injection Branch 30 mg sodium 2020- No [id number] 30mg 30 mg, U nivers hyaluronate 01-0509 Intra-mikey i ty of (viscosup) 19:45: 20:18 [...] 6-23 by mouth ity of 00:00: at [place] [address] bedtime. Medical Branch omeprazole 2020-0 Yes 40mg Take 40 mg U nivers 40 mg 6-23 by mouth ity of capsule 00:00: daily. Medical Branch rOPINIRole 2020-0 Yes 1mg Take 1 mg Un kirk 1 mg tablet 6-23 by mouth ity of 00:00: at [place] [address] bedtime. Medical Branch Nitrofurant 2020-0 Yes [id number] 100mg Take 1 Univers oin&Nit. 2-03 capsule by ity o f [place] 00:[place] 100 [place] 00 (two) Medical capsule times Branch daily. Nitrofurant Yes [id number] 100mg Take 1 Univers oin&Nit. 2-03 capsule by ity o f [place] 100 mg 00 (two) Medical capsule times Branch daily. methylPREDN 2018-0 Yes 84mg Take 21 Uni vers ISolone 9-20 tablets by ity of (MEDROL, 00:00: mouth [place] SWATHI,) 4 mg 00 SEE-INSTRU Med ical tablets CTIONS. Branch follow package directions methylPREDN 2017-0 Yes 84mg Take 21 Uni vers ISolone 9-20 tablets by ity of (MEDROL, 00:00: mouth [place] SWATHI,) 4 mg 00 SEE-INSTRU Med ical tablets CTIONS. Branch follow package directions ciprofloxac Yes Univer s in HCl 500 7-13 ity of mg tablet 00:00: [place] [facility] ciprofloxac Yes Univer s in HCl 500 7-13 ity of mg tablet 00:00: [address] nitrofurant Yes TK 1 C PO U nivers oin 100 mg 7-09 Q NIGHT ity of capsule 00:00: [place] [facility] nitrofurant Yes TK 1 C PO U nivers oin 100 mg 7-09 Q NIGHT ity of capsule 00:00: [place] [facility] ALPRAZolam Yes TK 1 T PO Un kirk 2 mg tablet 1-26 TID PRA ity o f 00:00: [address] BYSTOLIC 20 Yes TK 1 T PO U nivers mg tablet 1-26 D ity of 00:00: [address] traMADOL 50 2017- Yes TK 1 T PO U nivers mg tablet 1-26 BID PRF ity of 00:00: PAIN [address] chlorthalid 2017-0 Yes TK 1 T PO U nivers one 25 mg 1-26 D ity of tablet 00:00: [address] topiramate 2017-0 Yes TK 1 T PO Un kirk 25 mg 1-26 BID ity of tablet 00:00: [address] esomeprazol Yes TK 1 C PO U nivers e 40 mg 1-26 D ity of capsule 00:00: [place] [facility] ALPRAZolam Yes TK 1 T PO Un kirk 2 mg tablet -26 TID PRA ity o f 00:00: [place] [facility] Branch BYSTOLIC 20 Yes TK 1 T PO U nivers mg tablet -26 D ity of 00:00: [facility] Branch traMADOL 50 Yes TK 1 T PO U nivers mg tablet - BID PRF ity of 00:00: PAIN [place] [facility] chlorthalid Yes TK 1 T PO U nivers one 25 mg -26 D ity of tablet 00:00: [place] [facility] topiramate Yes TK 1 T PO Un kirk 25 mg -26 BID ity of tablet 00:00: [place] [facility] esomeprazol Yes TK 1 C PO U nivers e 40 mg -26 D ity of capsule 00:00: [place] [facility] Vital Signs Vital Name Observation Time Observation Value Comments Source Body height 2021-01-05 18:34:00 157.5 cm Universi ty [facility] Body weight 2021-01-05 18:34:00 122.471 kg Universi ty [facility] BMI 2021-01-05 18:34:00 49.38 kg/m2 Universi ty [facility] Body height 2021-01-05 18:34:00 157.5 cm Universi ty [facility] Body weight 2021-01-05 18:34:00 122.471 kg Universi ty [facility] BMI 2021-01-05 18:34:00 49.38 kg/m2 Universi ty [facility] Body height 2021-01-05 18:34:00 157.5 cm Universi ty [facility] Body weight 2021-01-05 18:34:00 122.471 kg Universi ty [facility] BMI 2021-01-05 18:34:00 49.38 kg/m2 Universi ty [facility] Procedures This patient has no known procedures. Encounters Start End Encounter Admission Attending Care Care Encounter Source Date/Time Date/Time Type Type Clinicians Facility Department ID 2022-06-24 Outpatient 3 [id number] [facility] REF [id number] [facility] 14:15:42 [facility] [place] [facility] 2022-06-22 Outpatient 3 [id number] E[facility] REF [id number] [facility] 08:40:03 [id number] [place] 2022-06-21 Outpatient 3 [id number] E[facility] REF [id number] [facility] 13:58:45 [facility] [place] 2021-07-16 2021-07-16 Telephone Ubaldo [facility] [id number] Univers 00:00:00 00:00:[address] [facility] [id number] it y of [place] [id number] [place] as NIELS?BLEA [phone] Ny rayvarinder MINNIE[address] OFFICE [facility] 2021-01-25 2021-01-25 [facility] [id number] Univers 14:00:00 14:00:00 [facility] 2021-01-18 2021-01-18 [facility] [id number] Univers 13:30:00 13:30:00 [facility] 2021-01-11 2021-01-11 [facility] [id number] Univers 14:45:00 14:45:00 [facility] 2021-01-05 2021-01-05 [facility] [id number] Univers 13:32:01 14:05:03 Visit [facility] [id number] it y of [place] [id number] Braxton as Niels?Blea [phone] Ny dical knjay [address] [facility] Office [facility] 2021-01-05 2021-01-05 [facility] [id number] Univers 13:32:01 14:05:03 Visit [facility] [id number] it y of [place] [id number] [place] as Niels?Blea [id number] Ny dical kn[address] Office [facility] 2021-01-05 2021-01-05 [facility] [id number] Univers 13:30:00 14:05:03 Visit Darlin S HEALTH [id number] it y of [place] [id number] [place] as NIELS?BLEA [phone] [address] 2021-01-05 2021-01-05 [facility] [id number] Univers 13:30:00 14:05:03 DARLIN ity [facility] 2021-01-05 2021-01-05 [facility] [id number] Univers 13:30:00 13:30:[address] [facility] 2020-12-29 2020-12-29 [facility] [id number] Univers 13:45:00 14:30:[address] [facility] 2020-12-29 2020-12-29 [facility] [id number] Univers 13:41:23 14:30:53 Visit Darlin S Health [id number] it y of [place] [id number] [place] as Niels?Blea [phone] Ny mitul owen[address] 2020-12-29 2020-12-29 [facility] [id number] Univers 13:45:00 13:45:00 [facility] 2020-12-22 2020-12-22 [facility] [id number] Univers 13:44:17 14:24:24 Visit Darlin S Health [id number] it y of [place] [id number] [place] as Niels?Blea [phone] Ny mitul richter [address] [place] [address] Office [facility] 2020-12-22 2020-12-22 [facility] [id number] Univers 13:44:17 14:24:24 Visit Darlin S Health [id number] it y of [place] [id number] [place] as Niels?Blea [phone] Ny dical kney [address] [place] [facility] 2020-12-22 2020-12-22 Outpatient Barb BROCK [facility] [id number] Univers 13:15:00 13:15:00 [facility] 2020-12-22 2020-12-22 Orders Doctor BRANDEN [id number] Univers 00:00:00 00:00:00 Only Unassigned, CHELSI [id number] ity of [place] [facility] [id number] Braxton as [phone] [address] 2020-11-27 2020-11-27 [facility] [id number] Univers 09:30:45 10:11:[address] [facility] [id number] it y of [place] [id number] Braxton as SPECIALTI [phone] Ny mitul [address] 2020-11-27 2020-11-27 [facility] [id number] Univers 09:15:00 10:11:23 [facility] 2020-11-27 2020-11-27 Outpatient Barb CONNER [facility] [id number] Univers 09:15:00 09:15:00 ZHENG steven [facility] 2020-11-23 2020-11-23 [facility]patient [facility] [id number] Univers 15:45:00 15:45:00 [facility] 2020-09-04 2020-09-04 Outpatient BANDAR MHALFONSO MHBL [id number] MHBL 09:24:00 12:27:00 SRI 2020-05-23 2020-05-23 Outpatient Barb GURROLA [facility] [id number] Univers 13:20:00 13:20:00 [facility] 2020-05-23 2020-05-23 Urgent Provider, [facility] [id number] Univers 12:35:26 12:55:26 [facility] [id number] ity of [place] [id number] Braxton as Professio [phone] [address] Office [facility] 2020-05-23 2020-05-23 Letter Doctor BRANDEN [id number] Univers 00:00:00 00:00:00 (Out) Unassigned, CHELSI [id number] ity of [place] [facility] [id number] Braxton as [phone] [facility] [address] [place] 2019-09-17 2019-09-17 Outpatient R EDUARDO CUNHA [facility] [id number] Univers 16:00:00 16:00:00 ALPHONSEEDUARDO MINA ity [facility] 2019-09-17 2019-09-17 Letter BRANDEN Estevez [id number] Univers 00:00:00 00:00:00 (Out) Yessica SEALY [id number] it y of [facility] [id number] [place] as [phone] [facility] [address] [place] 2019-07-23 2019-07-23 Outpatient R [facility] [id number] Univers 13:30:00 13:30:00 ity [facility] 2019-06-14 2019-06-14 Orders Doctor BRANDEN [id number] Univers 00:00:00 00:00:00 Only Unassigned, CHELSI [id number] ity of [place] [facility] [id number] Braxton as [phone] [facility] 009 Branch 2017-05-17 2017-05-17 Outpatient _SWHAWPRC PRIV PRIV [id number] [facility] 03:49:00 03:49:00 _Karlie [id number] Medica l Results This patient has no known results.
[2022-06-27] MEDS ORDERED: NA CHLORIDE 0.9% 1,000 ML ONE (10:42)
[2022-06-27 10:46] LABS: Absolute Lymphocytes (CBC) 2.7 K/uL (0.7-4.9); Lymphocytes % 30.8 % (15.3-44.8); MCV 93.1 fL (80-100); MPV 8.3 fL (7.6-11.3)
[2022-06-27 10:59] LABS: Albumin 3.1 g/dL (3.4-5.0); Magnesium 2.3 mg/dL (1.6-2.4); Potassium 4.3 mmol/L (3.5-5.1)
[2022-06-27 11:06] LABS: Bilirubin Total 0.6 mg/dL (0.2-1.0); Protein, Total 8.4 g/dL (6.4-8.2); Troponin High Sensitivity 5.3 pg/mL (<58.9)
--- NOTE | 2022-06-27 11:40 | RAD REPORT ---
EXAM DESCRIPTION: RADChest Single View06/27/2022 10:16 am CLINICAL HISTORY: weakness COMPARISON: Chest Single View dated 03/09/2022; Chest Pa And Lat (2 Views) dated 06/18/2020; Chest Si ngle View dated 06/22/2019 TECHNIQUE: Portable AP view of the chest. FINDINGS: Decreased inspiratory effort which limits evaluation. The lungs are clear.Left basilar ate lectasis. No pneumothorax or effusion. The mediastinal contours are unchanged. Stable mild cardiomega ly. IMPRESSION: No acute pulmonary process. Stable mild cardiomegaly.
[2022-06-27 11:47] LABS: Urine Blood Negative (Negative); Urine Glucose Negative (Negative); Urine Protein Trace (Negative); Urine Specific Gravity 1.015 (1.005-1.030); Urine pH 5.5 (5.0-7.0)
[2022-06-27 12:12] LABS: Urine Bacteria 20-50 /HPF (<20); Urine Mucus Slight /HPF (None Seen); Urine RBC <5 /HPF (None Seen); Urine WBC Clump Rare /HPF (None Seen)
[2022-06-27] MEDS ORDERED: CEFTRIAXONE 2000 MG/VIAL ONE (13:40)
[2022-06-27] MEDS ORDERED: LIDOCAINE 1% MPF 2 ML AMPULE ONE ×2 (13:40→13:41)
--- NOTE | 2022-06-27 13:41 | EDPHYS ---
Physician Documentation [facility] Name: Robina [place] Age: 72 yrs Sex: Female : 1950 Arrival Date: 06/27/2022 Time: 09:43 Bed 13 Private MD: ED Physician Jerson Hess HPI: 06/27 10:23 This 72 yrs old Female presents to ER via EMS with complaints of Weakness. rt 10:23 Unable to obtain HPI due to baseline dementia. History limited due to baseline rt dementia, patient presents to the ED with reported generalized weakness. The patient reportedly had her legs give out today making it difficult for her to stand. Patient did not report this to me, stated that she felt fine and was at her baseline status. Denies any pain, nausea, vomiting. Denies other acute complaints at this time, symptoms are moderate in severity, no other aggravating or elevating factors.. Historical: - Allergies: 09:45 Bactrim; mb9 - Home Meds: 11:56 gabapentin 300 mg oral cap [Active]; omeprazole 40 mg Oral cpDR [Active]; lorazepam 2 mb9 mg Oral tab [Active]; Aspirin Oral [Active]; Haloperidol Oral [Active]; ropinirole 1 mg oral tab [Active]; benztropine 1 mg Oral tab [Active]; - PMHx: 09:45 Anxiety; chronic uti; Dementia; GERD; Hypertension; mb9 - Immunization history:: Adult Immunizations up to date. - Social history:: Smoking status: Patient denies any tobacco usage or history of. - Family history:: not pertinent. ROS: 10:23 Constitutional: Positive for rt 10:23 Neuro: Positive for weakness, Negative for altered mental status. 10:23 Unable to obtain ROS due to baseline dementia. Exam: 10:23 Constitutional: This is a well developed, well nourished patient who is awake, alert, rt and in no acute distress. Head/Face: Normocephalic, atraumatic. Chest/axilla: Normal chest wall appearance and motion. Nontender with no deformity. No lesions are appreciated. Cardiovascular: Regular rate and rhythm with a normal S1 and S2. No gallops, murmurs, or rubs. Normal PMI, no JVD. No pulse deficits. Respiratory: Lungs have equal breath sounds bilaterally, clear to auscultation and percussion. No rales, rhonchi or wheezes noted. No increased work of breathing, no retractions or nasal flaring. Abdomen/GI: Soft, non-tender, with normal bowel sounds. No distension or tympany. No guarding or rebound. No evidence of tenderness throughout. MS/ Extremity: Pulses equal, no cyanosis. Neurovascular intact. Full, normal range of motion. Neuro: Awake and alert, GCS 15, oriented to person, place, time, and situation. Cranial nerves II-XII grossly intact. Motor strength 5/5 in all extremities. Sensory grossly intact. Cerebellar exam normal. Normal gait. Psych: Awake, alert, with orientation to person, place and time. Behavior, mood, and affect are within normal limits. 10:23 ENT: Dry mucous membranes. Vital Signs: 09:44 BP 145 / 78; Pulse 88; Resp 18; Temp 97.3; Pulse Ox 98% on R/A; Weight 113.4 kg; Height mb9 5 ft. 2 in. (157.48 cm); Pain 0/10; 11:46 BP 138 / 70; Pulse 84; Resp 18; Pulse Ox 98% ; mb9 12:41 BP 148 / 80; Pulse 76; Resp 16; Pulse Ox 100% ; mb9 14:04 BP 146 / 66; Pulse 77; Resp 16; Pulse Ox 97% ; mb9 09:44 Body Mass Index 45.73 (113.40 kg, 157.48 cm) mb9 MDM: 09:47 Patient medically screened. rt 13:41 Differential Diagnosis Sepsis, UTI, electrolyte disturbance. Data reviewed: vital rt signs, nurses notes, lab test result(s). Consideration of Admission/Observation Escalation of care including admission/observation considered. Patient has UTI, no evidence of sepsis on labs or vital signs, improving with IV fluids, patient is ambulatory with walker after fluids, after discussion with , patient to follow-up as an outpatient. We will start antibiotics, no need indications for admission to the hospital. I considered the following discharge prescriptions or medication management in the emergency department Medications were administered in the Emergency Department. See MAR. External Records Reviewed: Outpatient labs: Creatinine at baseline. Care significantly affected by the following chronic conditions: Dementia, hypertension. Counseling: I had a detailed discussion with the patient and/or guardian regarding: the historical points, exam findings, and any diagnostic results supporting the discharge/admit diagnosis, lab results, the need for outpatient follow up. 06/27 09:55 Order name: CBC with Diff rt 06/27 09:55 Order name: CMP rt 06/27 09:55 Order name: Troponin High Sensitivity rt 06/27 09:55 Order name: Magnesium rt 06/27 09:55 Order name: Urine Dipstick-Ancillary (obtain specimen); Complete Time: 11:45 rt 06/27 09:55 Order name: Chest Single View XRAY rt 06/27 09:55 Order name: CPK rt 06/27 10:46 Order name: CBC with Automated Diff; Complete Time: 10:55 EDMS 06/27 10:59 Order name: Comprehensive Metabolic Panel; Complete Time: 11:16 EDMS 06/27 10:59 Order name: Magnesium; Complete Time: 11:16 EDMS 06/27 11:07 Order name: Creatine Phosphokinase; Complete Time: 11:16 EDMS 06/27 11:07 Order name: Troponin High Sensitivity; Complete Time: 11:16 EDMS 06/27 11:41 Order name: RAD; Complete Time: 11:49 EDMS 06/27 11:47 Order name: Urine Dipstick-Ancillary; Complete Time: 11:49 EDMS 06/27 11:50 Order name: Urine Microscopic Only rt 06/27 12:13 Order name: Urine Microscopic Only; Complete Time: 12:30 EDMS Administered Medications: 10:42 Drug: NS 0.9% 1000 ml Route: IV; Rate: 1 bolus; Site: right antecubital; mb9 14:05 Follow up: Response: No adverse reaction; IV Status: Completed infusion mb9 13:45 Not Given (Other Intervention Used): Rocephin (cefTRIAXone) 2 grams IV at calculated mb9 rate once; Given slow IV push per pharmarcy instructions 13:46 Drug: Rocephin (cefTRIAXone) 1 grams Route: IM; Site: right gluteus; mb9 14:03 Follow up: Response: No adverse reaction mb9 13:46 Drug: Rocephin (cefTRIAXone) 1 grams Route: IM; Site: left gluteus; mb9 14:03 Follow up: Response: No adverse reaction mb9 Disposition Summary: 06/27/22 13:40 Discharge Ordered Location: Home rt Problem: an acute exacerbation rt Symptoms: have improved rt Condition: Stable rt Diagnosis - UTI/ Urinary tract infection, site not specified rt Followup: rt - With: Private Physician - When: 2 - 3 days - Reason: Discharge Instructions: - Discharge Summary Sheet rt - Urinary Tract Infection, Adult rt Forms: - Medication Reconciliation Form rt - Thank You Letter rt - Antibiotic Education rt - Prescription Opioid Use rt Prescriptions: - Macrobid 100 mg Oral Capsule - take 1 capsule by ORAL route every 12 hours for 7 days; 14 capsule; Refills: 0, rt Product Selection Permitted Signatures: Dispatcher [employer] Loraine De Leon RN RN mb9 Jerson Hess MD MD rt
--- NOTE | 2022-06-27 13:41 | ER ---
Nurse's Notes [facility] Name: Robina Stevens Age: 72 yrs Sex: Female : 1950 Arrival Date: 06/27/2022 Time: 09:43 Bed 13 Private MD: Diagnosis: UTI/ Urinary tract infection, site not specified Presentation: 06/27 09:44 Chief complaint: EMS states: "pt has had generalized weakness since Monday. Today her mb9 legs gave up and is too weak to walk.". Coronavirus screen: Vaccine status: Patient reports receiving the 2nd dose of the covid vaccine. Ebola Screen: No symptoms or risks identified at this time. Initial Sepsis Screen: Does the patient meet any 2 criteria? No. Patient's initial sepsis screen is negative. Does the patient have a suspected source of infection? No. Patient's initial sepsis screen is negative. Risk Assessment: Do you want to hurt yourself or someone else? Patient reports no desire to harm self or others. Onset of symptoms was June 24, 2022. 09:44 Acuity: YOJANA 3 mb9 09:44 Method Of Arrival: EMS: [facility] mb9 Triage Assessment: 09:47 General: Appears in no apparent distress. Behavior is calm, cooperative. Pain: Denies mb9 pain. Neuro: Sparks Agitation-Sedation Scale (RASS): 0 - Alert and Calm Level of Consciousness is awake, alert, obeys commands, Oriented to person, place, situation, Wax Bleacher are equal bilaterally Weakness in bilateral leg(s) Gait is unsteady, Speech is normal, Facial symmetry appears normal, Pupils are PERRLA, Intact. Cardiovascular: Heart tones S1 S2 present Rhythm is regular. Respiratory: Airway is patent Respiratory effort is even, unlabored, Respiratory pattern is regular, symmetrical. GI: Abdomen is round obese, Bowel sounds present X 4 quads. Abd is soft and non tender X 4 quads. Derm: Skin is fragile, is thin, Skin is dry, Skin is normal. Musculoskeletal: Range of motion: limited in bilateral lower extremities. Historical: - Allergies: 09:45 Bactrim; mb9 - Home Meds: 11:56 gabapentin 300 mg oral cap [Active]; omeprazole 40 mg Oral cpDR [Active]; lorazepam 2 mb9 mg Oral tab [Active]; Aspirin Oral [Active]; Haloperidol Oral [Active]; ropinirole 1 mg oral tab [Active]; benztropine 1 mg Oral tab [Active]; - PMHx: 09:45 Anxiety; chronic uti; Dementia; GERD; Hypertension; mb9 - Immunization history:: Adult Immunizations up to date. - Social history:: Smoking status: Patient denies any tobacco usage or history of. - Family history:: not pertinent. Screenin:46 [facility] ED Fall Risk Assessment (Adult) History of falling in the last 3 months, mb9 including since admission No falls in past 3 months (0 pts) Confusion or Disorientation Yes (5 pts) Intoxicated or Sedated No (0 pts) Impaired Gait Yes (1 pt) Mobility Assist Device Used No (0 pt) Altered Elimination Yes (1 pt) Score/Fall Risk Level 3 or more points = High Risk Oriented to surroundings, Maintained a safe environment, Educated pt \\T\\ family on fall prevention, incl call for assistance when getting out of bed. Abuse screen: Denies threats or abuse. Nutritional screening: No deficits noted. Tuberculosis screening: No symptoms or risk factors identified. Assessment: 09:48 Reassessment: see triage assessment. mb9 11:45 General: Appears in no apparent distress. Behavior is calm, cooperative, appropriate mb9 for age. Pain: Denies pain. Neuro: Sparks Agitation-Sedation Scale (RASS): 0 - Alert and Calm Level of Consciousness is awake, alert, obeys commands, Oriented to person, place, time, situation, Appropriate for age. Cardiovascular: Rhythm is regular. Respiratory: Airway is patent Respiratory effort is even, unlabored, Respiratory pattern is regular, symmetrical. GI:. : Urine is clear. Derm: Skin is normal. Musculoskeletal: Range of motion: intact in all extremities. 12:45 Reassessment: No changes from previously documented assessment. Patient and/or family mb9 updated on plan of care and expected duration. Pain level reassessed. Patient is alert, oriented x 3, equal unlabored respirations, skin warm/dry/pink. 13:29 Reassessment: pt able to ambulate with walker. Jimena KOWALSKI, notified. mb9 14:03 Reassessment:. Neuro: Level of Consciousness is awake, alert, obeys commands, Oriented mb9 to person, place, time, situation, Appropriate for age. Cardiovascular: Rhythm is regular. Respiratory: Airway is patent Respiratory effort is even, unlabored, Respiratory pattern is regular, symmetrical. Derm: Skin is pink, warm \\T\\ dry. Musculoskeletal: Range of motion: intact in all extremities. Vital Signs: 09:44 BP 145 / 78; Pulse 88; Resp 18; Temp 97.3; Pulse Ox 98% on R/A; Weight 113.4 kg; Height mb9 5 ft. 2 in. (157.48 cm); Pain 0/10; 11:46 BP 138 / 70; Pulse 84; Resp 18; Pulse Ox 98% ; mb9 12:41 BP 148 / 80; Pulse 76; Resp 16; Pulse Ox 100% ; mb9 14:04 BP 146 / 66; Pulse 77; Resp 16; Pulse Ox 97% ; mb9 09:44 Body Mass Index 45.73 (113.40 kg, 157.48 cm) mb9 ED Course: 09:43 Patient arrived in ED. mb9 09:44 Jerson Hess MD is Attending Physician. rt 09:44 Arm band placed on. mb9 09:45 Triage completed. mb9 09:46 Placed in gown. Bed in low position. Call light in reach. Side rails up X 1. Client mb9 placed on continuous cardiac and pulse oximetry monitoring. NIBP monitoring applied. Door closed. Noise minimized. Warm blanket given. 09:47 No provider procedures requiring assistance completed. mb9 10:25 Loraine Plunkett, RN is Primary Nurse. mb9 10:42 Magnesium Sent. mb9 10:42 CPK Sent. mb9 10:42 Troponin High Sensitivity Sent. mb9 10:42 CMP Sent. mb9 10:42 CBC with Diff Sent. mb9 11:47 Straight cath inserted, using sterile technique, 16 Fr. Specimen obtained. Returned zm yumiko urine. Patient tolerated well. 13:34 Urine Microscopic Only Sent. mb9 14:04 IV discontinued, intact, bleeding controlled, No redness/swelling at site. Pressure mb9 dressing applied. Administered Medications: 10:42 Drug: NS 0.9% 1000 ml Route: IV; Rate: 1 bolus; Site: right antecubital; mb9 14:05 Follow up: Response: No adverse reaction; IV Status: Completed infusion mb9 13:45 Not Given (Other Intervention Used): Rocephin (cefTRIAXone) 2 grams IV at calculated mb9 rate once; Given slow IV push per pharmarcy instructions 13:46 Drug: Rocephin (cefTRIAXone) 1 grams Route: IM; Site: right gluteus; mb9 14:03 Follow up: Response: No adverse reaction mb9 13:46 Drug: Rocephin (cefTRIAXone) 1 grams Route: IM; Site: left gluteus; mb9 14:03 Follow up: Response: No adverse reaction mb9 Medication: 09:46 VIS not applicable for this client. mb9 Output: 11:46 Urine: 450ml (Straight Cath); Total: 450ml. mb9 Outcome: 13:40 Discharge ordered by MD. rt 14:37 Discharged to home via wheelchair. mb9 14:37 Condition: stable 14:37 Discharge instructions given to patient, Instructed on discharge instructions, follow up and referral plans. Demonstrated understanding of instructions, follow-up care, medications, Prescriptions given X 1. 14:38 Patient left the ED. mb9 Signatures: Selene Moreno Mary Beth, RN RN mb9 Jerson Hess MD MD rt Corrections: (The following items were deleted from the chart) 11:48 11:47 Straight cath inserted, using sterile technique, Specimen obtained. Returned zm yumiko urine. Patient tolerated well. zm
[2022-06-27 15:08] VITALS: O2SAT 98
[2022-06-27 15:09] VITALS: BP 133/87
[2022-06-27 15:17] VITALS: TEMP 98.5
== END 2022-06-27 14:38 | disposition home or self-care (01) ==
LOC: ER 09:37
DX: N39.0 Urinary tract infection, site not specified (principal); I10 Essential (primary) hypertension; F03.90 Unspecified dementia, unspecified severity, without behavioral disturbance, psychotic disturbance, mood disturbance, and anxiety; Z88.1 Allergy status to other antibiotic agents; Z79.82 Long term (current) use of aspirin
CPT/HCPCS: 96361; 85025; 36415; 83735; 82550; 84484; 80053; 71045; 51702; 96360; 96372; 99284; J0696; J7030; 81003; 81015

== ENCOUNTER 2022-09-05 11:58 | Emergency (ER) | payer OTHER ==
--- OUTSIDE RECORDS SUMMARY | 2022-09-05 12:07 | XMS REPORT | Continuity of Care Document ---
:1950 Author Organization [facility] t Address [address] [place] [address] [place] [id number] Care Team Providers Name Role Phone Pcp, Patient Does Not Have A Primary Care Physician [id number] Attending Clinician Unavailable Rich Pete Rahil Attending Clinician Unavailable Zheng Conner MD Attending Clinician DARLIN BROCK Attending Clinician Unavailable Darlin Monroe Attending Clinician Doctor Unassigned, [place] Attending Clinician Unavailable ZHENG CONNER Attending Clinician Unavailable EMILIA PORTILLO Attending Clinician Unavailable ONDINA GURROLA Attending Clinician Unavailable Provider, [facility] Attending Clinician Unavailable Ondina Dominguez Attending Clinician EDUARDO CUNHA Attending Clinician Unavailable EDUARDO CUNHA Attending Clinician Unavailable Yessica Estevez MD Attending Clinician Vandana Attending Clinician Unavailable [id number] Admitting Clinician Unavailable Rich Pete Rahil Admitting Clinician Unavailable Vandana Admitting Clinician Unavailable Payers Payer Name Policy Type Policy Number Effective Date Expiration Date Renaldo hokpins [facility] [id number] COMMERCIAL [id number] 2017 NON-CONTRACT 00:00:00 GENERIC [place]IC[place]: [id number] 2013 [employer] 00:00:00 SUDHEER CASPER [id number] 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) Problems Condition Condition Condition Status Onset Resolution Last Treating Co mments Source Name Details Category Date Date Treatment Clinician Date No known No known Disease Unive rs active active ity of problems problems [facility] Allergies, Adverse Reactions, Alerts Allergy Allergy Status Severity Reaction(s) Onset Inactive Treating Comm ents Source Name Type Date Date Clinician Sulfa Propensi Active Rash Univers (Sulfona ty to 2-15 ity of mide adverse 00:00: [place] Antibiot reaction 00 Medica l ics) s Branch SULFA Drug Active Rash Univers (SULFONA Class 2-15 ity of MIDE 00:00: [place] ANTIBIOT 00 Medical ICS) Branch Social History Social Habit Start Date Stop Date Quantity Comments Source Exposure to Not sure [facility] SARS-CoV-2 [facility] (event) Branch Alcohol intake 2021-04-30 2021-04-30 Current [facility] 00:00:00 00:00:00 non-drinker of [facility] alcohol [place] (finding) Tobacco use and 2017-06-08 2017-06-08 Never used Universit y of exposure 00:00:00 00:00:00 [facility] Sex Assigned At [birth year] Universit y of 00:00:00 00:00:00 [facility] Smoking Status Start Date Stop Date Source Never smoker [facility] Medications Ordered Filled Start Stop Current Ordering Indication Dosage Frequency Signature Comments Components Source Medication Medication Date Date Medication? Clinician (SIG) Name Name sodium 2020- No [id number] 30mg Uni vers hyaluronate 04-30 9109 ity of (viscosup) 22:15: 20:07 [place] (ORTHOVISC) 00 :00 Medical injection Branch 30 mg sodium 2020- No [id number] 30mg 30 mg, U nivers hyaluronate 04-30 9109 Intra-mikey i ty of (viscosup) 22:15: 20:07 Juana garcia s (ORTHOVISC) 00 :00 ONCE, 1 Medic al injection dose, On Branch 30 mg 04/30/21 at 1615, Routine sodium 2020-04- No [id number] 30mg Uni vers hyaluronate 01-05 9109 ity of (viscosup) 17:00: 15:54 [place] (ORTHOVISC) 00 :00 Medical injection Branch 30 mg sodium 2020-04- No [id number] 30mg 30 mg, U nivers hyaluronate 01-05 9109 Intra-mikey i ty of (viscosup) 17:00: 15:54 culJuana fritz s (ORTHOVISC) 00 :00 ONCE, 1 Medic al injection dose, On Branch 30 mg 01/25/21 at 1200, Routine sodium 2020- No [id number] 30mg Uni vers hyaluronate 01-05 9109 ity of (viscosup) 19:45: 20:18 [place] (ORTHOVIS) 00 :00 Medical injection Branch 30 mg sodium 2020- No [id number] 30mg 30 mg, U nivers hyaluronate 01-05 9109 Intra-mikey i ty of (viscosup) 19:45: 20:18 culJuana fritz s (ORTHOVIS) 00 :00 ONCE, 1 Medic al injection [...] by mouth ity of capsule 00:00: daily. [place] [facility] rOPINIRole 2020-0 Yes 1mg Take 1 mg Un kirk 1 mg tablet 6-23 by mouth ity of 00:00: at [place] [address] bedtime. Medical Branch omeprazole 2020-0 Yes 40mg Take 40 mg U nivers 40 mg 6-23 by mouth ity of capsule 00:00: daily. [place] [facility] rOPINIRole 2020-0 Yes 1mg Take 1 mg Un kirk 1 mg tablet 6-23 by mouth ity of 00:00: at [place] 00 bedtime. Medical Branch Nitrofurant Yes [id number] 100mg Take 1 Univers oin&Nit. 2-03 capsule by ity o f [place] 00:00: mouth 2 [place] 100 mg 00 (two) Medical capsule times Branch daily. Nitrofurant Yes [id number] 100mg Take 1 Univers oin&Nit. 2-03 capsule [...] 500 7-13 ity of mg tablet 00:00: Medical Branch ciprofloxac Yes Univer s in HCl 500 7-13 ity of mg tablet 00:00: [facility] Branch nitrofurant Yes TK 1 C PO U nivers oin 100 mg 7-09 Q NIGHT ity of capsule 00:: Medical Branch nitrofurant Yes TK 1 C PO U nivers oin 100 mg 7- Q NIGHT ity of capsule 00:00: Medical Branch esomeprazol Yes TK 1 C PO U nivers e 40 mg 1-26 D ity of capsule 00:: Medical Branch ALPRAZolam Yes TK 1 T PO Un kirk 2 mg tablet -26 TID PRA ity o f 00:00: Medical Branch BYSTOLIC 20 Yes TK 1 T PO U nivers mg tablet -26 D ity of 00:00: Medical Branch traMADOL 50 Yes TK 1 T PO U nivers mg tablet -26 BID PRF ity of 00:00: PAIN Medical Branch chlorthalid 0 Yes TK 1 T PO U nivers one 25 mg 1-26 D ity of tablet 00:00: [place] [facility] topiramate Yes TK 1 T PO Un kirk 25 mg 1-26 BID ity of tablet 00:00: [place] [facility] esomeprazol Yes TK 1 C PO U nivers e 40 mg - D ity of capsule 00:00: [place] [facility] ALPRAZolam Yes TK 1 T PO Un kirk 2 mg tablet - TID PRA ity o f 00:00: [place] [facility] BYSTOLIC 20 Yes TK 1 T PO U nivers mg tablet -26 D ity of 00:00: [place] [facility] Branch traMADOL 50 Yes TK 1 T PO U nivers mg tablet -26 BID PRF ity of 00:00: PAIN Medical [place] chlorthalid Yes TK 1 T PO U nivers one 25 mg 1-26 D ity of tablet 00:00: [place] [facility] topiramate Yes TK 1 T PO Un kirk 25 mg -26 BID ity of tablet 00:00: [place] [facility] Vital Signs Vital Name Observation Time Observation Value Comments Source Body height 2021-01-05 18:34:00 157.5 cm Universi ty [facility] Body weight 2021-01-05 18:34:00 122.471 kg Universi ty [facility] BMI 2021-01-05 18:34:00 49.38 kg/m2 Universi ty [facility] Body height 2021-01-05 18:34:00 157.5 cm Universi ty [facility] Body weight 2021-01-05 18:34:00 122.471 kg Universi ty [facility] BMI 2021-01-05 18:34:00 49.38 kg/m2 Universi ty [facility] Body height 2021-01-05 18:34:00 157.5 cm Universi ty [facility] Body weight 2021-01-05 18:34:00 122.471 kg Universi ty [facility] BMI 2021-01-05 18:34:00 49.38 kg/m2 [facility] Procedures This patient has no known procedures. Encounters Start End Encounter Admission Attending Care Care Encounter Source Date/Time Date/Time Type Type Clinicians Facility Department ID 2022-07-01 Outpatient 3 [id number] [facility] AYLEEN [id number] [facility] 14:11:15 [facility] [place] [facility] 2022-06-24 Outpatient 3 [id number] ENC[facility] REF [id number] [facility] 14:15:42 [facility] [place] 2022-06-22 Outpatient 3 [id number] ENC[facility] REF [id number] [facility] 08:40:03 [facility] [place] 2022-06-21 Outpatient 3 [id number] E[facility] REF [id number] [facility] 13:58:45 0[facility] [place] 2022-07-22 2022-07-29 Inpatient 3 Juan R ENCPL BIN [id number] [facility] 19:20:00 13:00:00 Rich [facility] [place] 2021-07-16 2021-07-16 Telephone Ana [facility] [id number] Univers 00:00:00 00:00:00 [facility] [id number] it y of [place] [id number] [place] as NIELS?BLEA [phone] [address] MEDICAL OFFICE BUILDING 2021-01-25 2021-01-25 Outpatient Barb [facility]OCK [facility] [id number] Univers 14:00:00 14:00:00 [facility] 2021-01-18 2021-01-18 Outpatient Barb BROCK [facility] [id number] Univers 13:30:00 13:30:00 [facility] 2021-01-11 2021-01-11 Outpatient Barb BROCK [facility] [id number] Univers 14:45:00 14:45:00 [facility] 2021-01-05 2021-01-05 [facility] [id number] Univers 13:32:01 14:05:03 Visit Darlin S Health [id number] it y of [place] [id number] [place] as Niels?Blea [phone] Me mitul richter 198 [facility] Office [facility] 2021-01-05 2021-01-05 [facility] [id number] Univers 13:32:01 14:05:03 Visit Darlin S Health [id number] it y of [place] [id number] [place] as Niels?Blea [id number] Oh mitul richter 198 [facility] Office [facility] 2021-01-05 2021-01-05 [facility] [id number] Univers 13:30:00 14:05:03 Visit [facility] HEALTH [id number] it y of [place] [id number] Braxton as NIELS?BLEA [id number] Oh mitul RICHTER [address] [place] [address] 2021-01-05 2021-01-05 Outpatient Barb BROCK [facility] [id number] Univers 13:30:00 14:05:03 DARLIN ity [facility] 2021-01-05 2021-01-05 Outpatient Barb BROCK [facility] [id number] Univers 13:30:00 13:30:00 DARLIN y [facility] 2020-12-29 2020-12-29 [facility] [id number] Univers 13:45:00 14:30:53 DARLIN y [facility] 2020-12-29 2020-12-29 [facility] [id number] Univers 13:41:23 14:30:53 Visit [facility] Health [id number] it y of [place] [id number] [place] as Niels?Blea [id number] Oh mitul richter [address] [place] [address] Office [facility] 2020-12-29 2020-12-29 [facility]patient [facility] [id number] Univers 13:45:00 13:45:[address] [facility] 2020-12-22 2020-12-22 Office [facility] [id number] Univers 13:44:17 14:24:24 Visit Darlin Moss [id number] it y of [place] [id number] [place] as Niels?Blea [phone] Oh dicvarinder richter 198 [facility] Office [facility] 2020-12-22 2020-12-22 Office [facility] [id number] Univers 13:44:17 14:24:24 Visit Darlin [facility] [id number] it y of [place] [id number] [place] as Niels?Blea [id number] Oh dicvarinder richter [address] [place] [address] Office [facility] 2020-12-22 2020-12-22 [facility] [id number] Univers 13:15:00 13:15:00 [facility] 2020-12-22 2020-12-22 Orders Doctor BRANDEN [id number] Univers 00:00:00 00:00:00 Only Unassigned, CHELSI [id number] ity of [place] [facility] [id number] [place] as [id number] [address] 2020-11-27 2020-11-27 [facility] [id number] Univers 09:30:45 10:11:23 Visit Zheng [facility] [id number] it y of SURGICAL [id number] [place] as SPECIALTI [id number] Oh mitul AVERY [address] [place] [address] 2020-11-27 2020-11-27 Outpatient Barb CONNER [facility] [id number] Univers 09:15:00 10:11:23 ZHENGCANDIDA rodriguez [facility] 2020-11-27 2020-11-27 Outpatient Barb CONNER [facility] [id number] Univers 09:15:00 09:15:00 ZHENGCANDIDA rodriguez [facility] 2020-11-23 2020-11-23 [facility]patient [facility] [id number] Univers 15:45:00 15:45:00 ZHENGCANDIDA rodriguez [facility] 2020-09-04 2020-09-04 Outpatient DARRIN PORTILLO [facility] [id number] [facility] 09:24:00 12:27:00 [facility] 2020-05-23 2020-05-23 Outpatient R IZABELA [facility] [id number] Univers 13:20:00 13:20:00 ONDINA ity [facility] 2020-05-23 2020-05-23 Urgent Provider, [facility] [id number] Univers 12:35:26 12:55:26 [facility] [id number] ity of [place] [id number] [place] as Professio [phone] [address] Office [facility] 2020-05-23 2020-05-23 Letter Doctor OTERO [id number] Univers 00:00:00 00:00:00 (Out) Unassigned, CHELSI [id number] ity of [place] [facility] [id number] [place] as [id number] [address] 2019-09-17 2019-09-17 Outpatient R EDUARDO CUNHA [facility] [id number] Univers 16:00:00 16:00:00 ALPHONSEEDUARDO ity [facility] 2019-09-17 2019-09-17 Letter BRANDEN Estevez [id number] Univers 00:00:00 00:00:00 (Out) Yessica GAGNON [id number] it y of HOSPITAL [id number] [place] as [id number] [facility] 019 [place] 2019-07-23 2019-07-23 Outpatient R [facility] [id number] Univers 13:30:00 13:30:00 ity [facility] 2019-06-14 2019-06-14 Orders Doctor OTERO [id number] Univers 00:00:00 00:00:00 Only Unassigned, CHELSI [id number] ity of [place] [facility] [id number] [place] as [id number] [facility] 009 [place] 2017-05-17 2017-05-17 Outpatient GC_SWHAWPRC PRIV PRIV [id number] [facility] 03:49:00 03:49:00 _Karlie [id number] Medica l Results This patient has no known results.
[2022-09-05 13:03] LABS: Absolute Lymphocytes (CBC) 4.3 K/uL (0.7-4.9); Hematocrit 42.5 % (36.0-45.0); MCV 94.8 fL (80-100); MPV 8.9 fL (7.6-11.3); RBC Red Blood Cell Count 4.49 M/uL (3.86-4.86)
[2022-09-05] MEDS ORDERED: ONDANSETRON 4 MG/2 ML VIAL ONE (13:03)
[2022-09-05] MEDS ORDERED: NA CHLORIDE 0.9% 1,000 ML ONE (13:03)
[2022-09-05 13:19] LABS: Albumin 3.1 g/dL (3.4-5.0); Bilirubin Total 0.5 mg/dL (0.2-1.0); Potassium 4.1 mEq/L (3.5-5.1); Protein, Total 8.1 g/dL (6.4-8.2)
[2022-09-05 13:45] LABS: Specific Gravity 1.014 (1.005-1.030); Urine Bilirubin NEGATIVE (Negative); Urine Blood Negative (Negative); Urine Clarity Clear (Clear); Urine Color Light-Yellow (Yellow); Urine Glucose NEGATIVE (Negative); Urine Protein NEGATIVE (Negative); Urine Urobilinogen Normal (Normal)
--- NOTE | 2022-09-05 14:02 | RAD REPORT ---
EXAM DESCRIPTION: CT - Abdomen Pelvis Wo Contrast - 09/05/2022 1:47 pm CLINICAL HISTORY: Abdominal pain. Abd pain;Nausea / vomiting COMPARISON: [facility] Protocol dated 03/09/2022 TECHNIQUE: CT imaging of the abdomen and pelvis was performed without contrast. Solid organ, bowel a nd vascular assessment is limited due to lack of IV and oral contrast. All CT scans are performed using dose optimization technique as appropriate and may include automated exposure control or mA/KV adjustment according to patient size. FINDINGS: The lower lung magdaleno are clear. The liver demonstrates mild nodular contour compatible with cirrhosis. Spleen, pancreas, adrenal glan ds and kidneys are within normal limits for a limited non-contrast examination. No bowel obstruction, free air, free fluid or abscess. The appendix is normal. There is a compression deformity affecting the L2 vertebral body. Loss of vertebral body height is es timated at 20%, however the fracture appears chronic. IMPRESSION: Mild liver cirrhosis is present. No acute finding evident. A limited non-contrast examination was performed as detailed.
--- NOTE | 2022-09-05 14:34 | ER ---
Nurse's Notes [facility] Name: Robina Stevens Age: 72 yrs Sex: Female : 1950 Arrival Date: 09/05/2022 Time: 11:58 Bed 3 Private MD: Diagnosis: Nausea with vomiting, unspecified;Chronic kidney disease, unspecified Presentation: 09/05 12:36 Chief complaint: Spouse and/or significant other states: they were sent from their dr uriarte office for the patient having low blood pressure with associated nausea and vomiting. patient reports chronic nausea, but the states she vomited today, and that is not her normal. Coronavirus screen: At this time, the client does not indicate any symptoms associated with coronavirus-19. Ebola Screen: No symptoms or risks identified at this time. Initial Sepsis Screen: Does the patient meet any 2 criteria? No. Patient's initial sepsis screen is negative. Does the patient have a suspected source of infection? Yes: Dysuria/Frequency/Urgency/UTI. Risk Assessment: Do you want to hurt yourself or someone else? Patient reports no desire to harm self or others. Onset of symptoms was September 05, 2022. 12:36 Method Of Arrival: Wheelchair ap3 12:36 Acuity: YOJANA 3 ap3 Triage Assessment: 12:38 General: Appears in no apparent distress. Behavior is calm. Pain: Complains of pain in ap3 low back area. Neuro: Level of Consciousness is awake, alert, obeys commands, Oriented to person, place, time, situation, patient is max assist, which is reportedly her baseline per spouse. Cardiovascular: Patient's skin is warm and dry. Respiratory: Airway is patent Respiratory effort is even, unlabored, Respiratory pattern is regular, symmetrical. GI: Reports nausea, vomiting. : Reports incontinence, since chronic. Historical: - Allergies: 12:38 Bactrim; ap3 - PMHx: 12:38 Anxiety; chronic uti; Dementia; GERD; Hypertension; ap3 - Immunization history:: Client reports having NOT received the Covid vaccine. - Social history:: Smoking status: Patient denies any tobacco usage or history of. Screenin:40 Abuse screen: Denies threats or abuse. Nutritional screening: No deficits noted. ap3 Tuberculosis screening: No symptoms or risk factors identified. 14:32 [facility] ED Fall Risk Assessment (Adult) History of falling in the last 3 months, ap3 including since admission Yes- fall prone (multiple falls) (3 pts) Confusion or Disorientation No (0 pts) Intoxicated or Sedated No (0 pts) Impaired Gait Yes (1 pt) Mobility Assist Device Used Yes (1 pt) Altered Elimination Yes (1 pt) Score/Fall Risk Level 3 or more points = High Risk. Assessment: 14:32 Reassessment: Patient and/or family updated on plan of care and expected duration. Pain ap3 level reassessed. Patient is alert, oriented x 3, equal unlabored respirations, skin warm/dry/pink. Vital Signs: 12:36 BP 108 / 52; Pulse 61; Resp 18; Pulse Ox 93% on R/A; Weight 118.84 kg (M); ap3 ED Course: 12:00 Patient arrived in ED. rg4 12:18 Chioma Chapa, LINDA is Primary Nurse. ap3 12:19 Camden Edmonds DO is Attending Physician. ms3 12:38 Triage completed. ap3 12:40 Arm band placed on right wrist. ap3 12:40 Patient has correct armband on for positive identification. Placed in gown. Bed in low ap3 position. Call light in reach. Side rails up X2. Adult w/ patient. Pulse ox on. NIBP on. 12:55 Inserted saline lock: 22 gauge in right antecubital area, using aseptic technique. ap3 Blood collected. 13:34 Urinalysis w/ reflexes Sent. ap3 13:49 Abdomen In Process Unspecified. EDMS 14:32 ED physician to see patient. ap3 14:32 No provider procedures requiring assistance completed. ap3 14:51 IV discontinued, intact, bleeding controlled, No redness/swelling at site. Pressure ap3 dressing applied. Administered Medications: 13:00 Drug: NS 0.9% IV 1000 ml Route: IV; Rate: 1000 ml; Site: right antecubital; ap3 14:52 Follow up: IV Status: Completed infusion ap3 13:00 Drug: Ondansetron IVP 4 mg Route: IVP; Site: right antecubital; ap3 14:51 Follow up: Response: No adverse reaction; Nausea is decreased ap3 Medication: 12:41 VIS not applicable for this client. ap3 Outcome: 14:33 Discharge ordered by . ms3 14:51 Discharged to home via wheelchair, with family. ap3 14:51 Condition: good 14:51 Discharge instructions given to patient, family, Instructed on discharge instructions, follow up and referral plans. Demonstrated understanding of instructions, follow-up care. 14:51 Patient left the ED. ap3 Signatures: Dispatcher [employer] EDPrecious Del Real rg4 Chioma Chapa RN RN ap3 Camden Edmonds DO DO ms3
--- NOTE | 2022-09-05 14:34 | EDPHYS ---
Physician Documentation [facility] Name: Robina Stevens Age: 72 yrs Sex: Female : 1950 Arrival Date: 09/05/2022 Time: 11:58 Bed 3 Private MD: ED Physician Camden Edmonds HPI: 09/05 12:38 This 72 yrs old Female presents to ER via Wheelchair with complaints of ms3 Nausea/Vomiting, Low BP. 12:38 72-year-old female with past medical history of chronic kidney disease presents for ms3 nausea and vomiting that began 15 to 20 minutes ago. Patient was in Dr. Wahl's office and sent to the emergency department for low blood pressure. Patient denies pain at this time. Patient denies alleviating or inciting factors. Historical: - Allergies: 12:38 Bactrim; ap3 - PMHx: 12:38 Anxiety; chronic uti; Dementia; GERD; Hypertension; ap3 - Immunization history:: Client reports having NOT received the Covid vaccine. - Social history:: Smoking status: Patient denies any tobacco usage or history of. ROS: 12:38 Constitutional: Negative for fever, and chills. Neck: Negative for injury, pain, and ms3 swelling, Cardiovascular: Negative for chest pain, and palpitations. Respiratory: Negative for shortness of breath, cough, wheezing, and pleuritic chest pain. 12:38 Skin: Negative for injury, rash, and discoloration. 12:38 Abdomen/GI: Positive for nausea and vomiting. 12:38 All other systems are negative. Exam: 12:38 Constitutional: This is a well developed, well nourished patient who is awake, alert, ms3 and in no acute distress. Head/Face: Normocephalic, atraumatic. Chest/axilla: Normal chest wall appearance and motion. Nontender with no deformity. Cardiovascular: Regular rate and rhythm with a normal S1 and S2. No gallops, murmurs, or rubs. Normal PMI, no JVD. No pulse deficits. Respiratory: Lungs have equal breath sounds bilaterally, clear to auscultation and percussion. No rales, rhonchi or wheezes noted. No increased work of breathing, no retractions or nasal flaring. Abdomen/GI: Soft, non-tender, with normal bowel sounds. No distension or tympany. No guarding or rebound. No evidence of tenderness throughout. Skin: Warm, dry with normal turgor. Normal color with no rashes, no lesions, and no evidence of cellulitis. Vital Signs: 12:36 BP 108 / 52; Pulse 61; Resp 18; Pulse Ox 93% on R/A; Weight 118.84 kg (M); ap3 MDM: 12:38 Differential diagnosis: Nonspecific abd pain, gastritis, viral gastroenteritis, ms3 gastroenteritis. 13:07 Patient medically screened. ms3 15:38 Data reviewed: vital signs, nurses notes, lab test result(s), radiologic studies, CT ms3 scan, and as a result, I will discharge patient. I considered the following discharge prescriptions or medication management in the emergency department Medications were administered in the Emergency Department. See MAR. Independent interpretation of the following test(s) in the Emergency Department night monitor: rate is 62 beats/min, Rhythm is normal sinus rhythm, regular, with no ectopy, Interpretation: normal rate, normal rhythm. Historians other than the Patient: Spouse/Significant Other: Patient's . Counseling: I had a detailed discussion with the patient and/or guardian regarding: the historical points, exam findings, and any diagnostic results supporting the discharge/admit diagnosis, lab results, radiology results, the need for outpatient follow up, to return to the emergency department if symptoms worsen or persist or if there are any questions or concerns that arise at home. Response to treatment: the patient's symptoms have markedly improved after treatment, and as a result, I will discharge patient. Special discussion: I discussed with the patient/guardian in detail that at this point there is no indication for admission to the hospital. It is understood, however, that if the symptoms persist or worsen the patient needs to return immediately for re-evaluation. 09/05 12:36 Order name: CBC with Diff; Complete Time: 13:37 ms3 09/05 12:36 Order name: CMP; Complete Time: 13:37 ms3 09/05 12:36 Order name: Lipase; Complete Time: 13:37 ms3 09/05 12:36 Order name: Urinalysis w/ reflexes; Complete Time: 13:55 ms3 09/05 13:30 Order name: Abdomen ; Complete Time: 14:11 EDMS 09/05 12:36 Order name: IV Saline Lock; Complete Time: 12:55 ms3 09/05 12:36 Order name: Labs collected and sent; Complete Time: 12:55 ms3 Administered Medications: 13:00 Drug: NS 0.9% IV 1000 ml Route: IV; Rate: 1000 ml; Site: right antecubital; ap3 14:52 Follow up: IV Status: Completed infusion ap3 13:00 Drug: Ondansetron IVP 4 mg Route: IVP; Site: right antecubital; ap3 14:51 Follow up: Response: No adverse reaction; Nausea is decreased ap3 Disposition Summary: 09/05/22 14:33 Discharge Ordered Location: Home ms3 Condition: Stable ms3 Diagnosis - Nausea with vomiting, unspecified ms3 - Chronic kidney disease, unspecified ms3 Followup: ms3 - With: Private Physician - When: 2 - 3 days - Reason: Recheck today's complaints Discharge Instructions: - Discharge Summary Sheet ms3 - Nausea and Vomiting, Adult ms3 - Chronic Kidney Disease, Adult, [id number] ms3 Forms: - Medication Reconciliation Form ms3 - Thank You Letter ms3 - Antibiotic Education ms3 - Prescription Opioid Use ms3 Signatures: Dispatcher [employer] Chioma Mcneil RN RN ap3 Camden Edmonds DO DO ms3 Corrections: (The following items were deleted from the chart) 13:30 12:36 Abdomen Pelvis W Con+CT.RAD.[id number] ordered. EDMS EDMS
[2022-09-05 15:13] VITALS: BP 108/52; O2SAT 93
== END 2022-09-05 14:51 | disposition home or self-care (01) ==
LOC: ER 11:58
DX: R11.2 Nausea with vomiting, unspecified (principal); N18.9 Chronic kidney disease, unspecified; Z88.1 Allergy status to other antibiotic agents; I10 Essential (primary) hypertension; F03.90 Unspecified dementia, unspecified severity, without behavioral disturbance, psychotic disturbance, mood disturbance, and anxiety
CPT/HCPCS: 96361; 85025; 36415; 81003; 83690; 80053; 74176; 96374; 99284; J2405; J7030